=== PATIENT | female | born 1970 | race Caucasian/White ===

== ENCOUNTER 2019-09-06 22:54 | Inpatient (IN) | payer MEDICAID ==
[~2019-09-06] VITALS: Ht 157.5 cm; Wt 57.4 kg
[2019-09-06] MEDS ORDERED: SODIUM CHLORIDE 0.9% 1,000 ML IV ONE (23:30)
[2019-09-06 23:59] LABS: Basophils # (auto) 0.1 uL; Basophils % (auto) 0.8 % (0.0-2.0); Eosinophils # (auto) 0.1 uL; Eosinophils % (auto) 0.6 % (0.0-7.0); Hematocrit 43.4 % (36.0-46.0); Hemoglobin 14.2 g/dL (12.2-16.2); Lymphocytes # (auto) 3.1 uL; Lymphocytes % (auto) 27.4 % (10.0-50.0); Mean Corpuscular Hemoglobin 30.2 pg (28.0-32.0); Mean Corpuscular Hgb Conc. 32.7 g/dL (32.0-36.0); Mean Corpuscular Volume 92.3 fL (80.0-100.0); Monocytes % (auto) 8.5 % (0.0-12.0); Neutrophils # (auto) 7.1 uL; Neutrophils % (auto) 62.7 % (37.0-80.0); Nucleated Red Blood Cells % 0.1 %; Platelet Count (auto) 307 10^3/uL (140-450); Red Cell Distribution Width 13.8 % (11.8-14.3); White Blood Cell 11.4 10^3/uL (4.4-10.8)
[2019-09-07 00:12] LABS: INR 0.98 (0.9-1.15); Partial Thromboplastin Time 30.1 sec (23.64-32.05)
[2019-09-07 00:13] LABS: Acetaminophen < 2.0 ug/mL (10-30); Albumin 3.7 g/dL (3.4-5.0); Calcium 8.6 mg/dL (8.5-10.1); Chloride 106 mmol/L (98-107); Potassium 4.3 mmol/L (3.5-5.1); Salicylate < 1.7 mg/dL (2.8-20.0); Sodium 138 mmol/L (136-145)
[2019-09-07 00:16] LABS: Alanine Aminotransferase 52 U/L (13-56); Anion Gap 7 (5-15); Aspartate Aminotransferase 27 U/L (15-37); BUN/Creatinine Ratio 22.3; Blood Alcohol < 3.0 mg/dL (0-5); Blood Urea Nitrogen 23 mg/dL (7-18); Carbon Dioxide 25 mmol/L (21-32); GFR African American 73 mL/min; GFR Non-African American 61 mL/min; Glucose 101 mg/dL (74-106); Magnesium 2.4 mg/dL (1.6-2.6)
[2019-09-07 00:32] LABS: Alkaline Phosphatase 93 U/L (45-117); Bilirubin, Total 0.3 mg/dL (0.2-1.0)
[2019-09-07] MEDS ORDERED: ADENOSINE 6 MG/2 ML INJ IV ONE (01:15)
[2019-09-07] MEDS ORDERED: MORPHINE SULF INJ 2 MG/ML SYRINGE 1ML IV PRN (06:00)
[2019-09-07] MEDS ORDERED: NITROGLYCERIN 0.4 MG SL TAB SL PRN (06:00)
[2019-09-07] MEDS ORDERED: LORazepam 0.5 MG TAB PO PRN (06:15)
[2019-09-07] MEDS ORDERED: ACETAMINOPHEN 500 MG TAB PO PRN (06:15)
[2019-09-07] MEDS ORDERED: ONDANSETRON HCL 4 MG/2 ML VIAL IV PRN (06:15)
[2019-09-07 06:52] LABS: Basophils # (auto) 0.1 uL; Basophils % (auto) 0.8 % (0.0-2.0); Eosinophils # (auto) 0.1 uL; Eosinophils % (auto) 1.3 % (0.0-7.0); Hematocrit 35.6 % (36.0-46.0); Hemoglobin 12.1 g/dL (12.2-16.2); Lymphocytes # (auto) 2.6 uL; Lymphocytes % (auto) 27.2 % (10.0-50.0); Mean Corpuscular Hemoglobin 31.6 pg (28.0-32.0); Mean Corpuscular Hgb Conc. 33.9 g/dL (32.0-36.0); Monocytes # (auto) 0.6 uL; Monocytes % (auto) 6.3 % (0.0-12.0); Neutrophils # (auto) 6.2 uL; Neutrophils % (auto) 64.4 % (37.0-80.0); Nucleated Red Blood Cells % 0.1 %; Platelet Count (auto) 242 10^3/uL (140-450); Red Blood Cells 3.83 10^6/uL (4.0-5.20); Red Cell Distribution Width 13.8 % (11.8-14.3); White Blood Cell 9.7 10^3/uL (4.4-10.8)
[2019-09-07 07:03] LABS: BUN/Creatinine Ratio 30.5; Calcium 7.3 mg/dL (8.5-10.1); Potassium 4.6 mmol/L (3.5-5.1)
[2019-09-07 07:05] LABS: Cholesterol 144 mg/dL (< 200)
[2019-09-07 07:08] LABS: HDL Cholesterol 54 mg/dL (40-59); LDL Cholesterol 78 mg/dL (< 100); Triglycerides 51 mg/dL (< 150)
[2019-09-07 08:16] LABS: Urine Bacteria NONE SEEN /hpf (None Seen); Urine Blood Negative /uL (Negative); Urine Mucus FEW (None Seen); Urine Specific Gravity 1.023 (1.001-1.035); Urine WBC 259 /hpf (0 - 5)
[2019-09-07 08:40] LABS: Alcohol, Urine < 3.0 mg/dL (0-5); Amphetamine Screen, Urine POSITIVE (NEGATIVE); Barbiturate Scree,Urine NEGATIVE (NEGATIVE); Benzodiazephine Screen, Urine NEGATIVE (NEGATIVE); Cannabinoid Screen, Urine NEGATIVE (NEGATIVE); Cocaine Screen, Urine NEGATIVE (NEGATIVE); Opiate Scree,Urine NEGATIVE (NEGATIVE); Phencyclidine Screen, Urine NEGATIVE (NEGATIVE)
--- NOTE | 2019-09-07 09:13 | NUR ---
Telemetry admit from ER RHEA EISENBERGHER admitted to Telemetry unit after SBAR received. Patient oriented to NICOLE BALLESTEROS RN primary RN, unit, room, bed, and unit policies regarding patient care and visiting hours. Patient now on continuous telemetry monitoring, tele box # 81 and telemetry reading on arrival to unit is NSR. Bed in lowest and locked position with side rails up x2 and Pt encouraged to call if they need something. All questions and concerns addressed, patient verbalized understanding.
[2019-09-07] MEDS ORDERED: CALCIUM GLUC 4.65meq/50ml D5AE 50 ML IV ONE (09:30)
[2019-09-07] MEDS ORDERED: ASPirin-EC 81 mg tab PO SCH (10:00)
[2019-09-07] MEDS ORDERED: PANTOPRAZOLE 40 MG TAB PO SCH (10:00)
[2019-09-07] MEDS ORDERED: ENOXAPARIN SOD 60 MG/0.6 ML SYRINGE SC SCH (10:00)
[2019-09-07 10:02] VITALS: BP 110/75
--- NOTE | 2019-09-07 11:30 | NUR ---
PAGED DR. MULLER REGARDING PT DIET. AWAITING CALL BACK.
--- NOTE | 2019-09-07 12:30 | NUR ---
PER MD ORDERS, PT IS TO BE DISCHARGED ONCE NEUROLOGY HAS CLEARED THE PT TO GO HOME AND SS CONSULT IS COMPLETED.
--- NOTE | 2019-09-07 12:38 | NUR ---
PAGED S/S REGARDING CONSULT.
[2019-09-07] MEDS ORDERED: METO25TA36 PO (12:53)
[2019-09-07] MEDS ORDERED: ASP81EC PO (12:53)
[2019-09-07 13:00] VITALS: BP 92/57
--- NOTE | 2019-09-07 14:40 | NUR ---
SPOKE TO S/SMARK. SS WORKER AWARE OF SS CONSULT.
--- NOTE | 2019-09-07 15:00 | NUR ---
PT BROUGHT BACK FROM RADIOLOGY FOR MRI. THE PT VERBALIZED, "THERE IS NO WAY I AM GOING INTO THE MRI MACHINE". THE PT WAS EDUCATED ON THE PURPOSE AND IMPORTANCE OF THE MRI. THE PT ALSO EDUCATED ON THE RISKS OF NOT RECEIVING THE MRI. THE PT CONTINUES TO REFUSE THE MRI. PT EDUCATED AND ENCOURAGED TO HAVE AN MRI COMPLETED OUT PATIENT, PER MD ORDERS.
--- NOTE | 2019-09-07 15:11 | NUR ---
D/C Planning Per SS consult for Meth abused. Provided information for substance abused to Pt at bedside however Pt refused Resources and stated she will not consume meth due to her heart conditions. Pt verbalize understanding d/c plan.
--- NOTE | 2019-09-07 16:30 | NUR ---
CALLED AND SPOKE TO DR. Fredy MULLER. NOTIFIED OF THE PT BP 92/57. MD AWARE THAT THE PT BP IS DECREASED. DUE TO FURTHER INVESTIGATION ON PT STATUS MD DISCONTINUED THE METOPROLOL THAT WAS PREVIOUSLY PRESCRIBED FOR OUT PT. NEW ORDERS RECEIVED, READ BACK AND VERIFIED.
--- NOTE | 2019-09-07 17:50 | NUR ---
Discharge instructions given as ordered. Encourage to follow up with PMD as instructed. All questions and concerns addressed. Patient verbalized understanding. Medication reconciliation form completed and copy given to patient. No Home medications held in Pharmacy. PT denied needed vaccines. IV removed with catheter intact, pressure dressing applied. Telemetry unit returned to ICU.
--- NOTE | 2019-09-07 18:15 | NUR ---
Patient walked off unit with all personal belongings, accompanied by family member. No distress noted at time of departure.
[2019-09-08] MEDS ORDERED: ENOXAPARIN SOD 40 MG/0.4 ML SYRINGE SC SCH (10:00)
== END 2019-09-07 18:15 | disposition home or self-care (01) | DRG 201 ==
LOC: ER 22:58 → TELE 22:59 → TELE-WESTW 09-07 09:13
PROVIDERS: ADMIT Nurse Practitioner Family; ATTEND Internal Medicine
DX: I47.1 Supraventricular tachycardia (principal); I21.4 Non-ST elevation (NSTEMI) myocardial infarction; F15.10 Other stimulant abuse, uncomplicated; K08.89 Other specified disorders of teeth and supporting structures; F17.200 Nicotine dependence, unspecified, uncomplicated
CPT/HCPCS: 36415; 70450; 71045; 72125; 80048; 80053; 80061; 80307; 80320; 80329; 81001; 81025; 83605; 83735; 83880; 84484; 85025; 85610; 85730; 87040; 93005; 93306; 96360; G0378; J0153; J0610

== ENCOUNTER 2020-06-08 05:42 | Emergency (ER) | payer MEDICAID ==
[~2020-06-08] VITALS: Ht 157.5 cm; Wt 59.0 kg
[~2020-06-08 05:42] MED LIST: ASPI-394 PO
[2020-06-08 09:10] LABS: Basophils # (auto) 0.1 10 ^3/uL (0-0.2); Basophils % (auto) 0.5 % (0.0-2.0); Eosinophils # (auto) 0 10 ^3/uL (0-0.8); Eosinophils % (auto) 0.2 % (0.0-7.0); Hematocrit 41.5 % (36.0-46.0); Hemoglobin 13.8 g/dL (12.2-16.2); Lymphocytes # (auto) 0.9 10 ^3/uL (0.4-5.4); Mean Corpuscular Hemoglobin 30.3 pg (28.0-32.0); Mean Corpuscular Hgb Conc. 33.1 g/dL (32.0-36.0); Mean Corpuscular Volume 91.4 fL (80.0-100.0); Monocytes # (auto) 0.6 10 ^3/uL (0-1.3); Monocytes % (auto) 4.6 % (0.0-12.0); Neutrophils # (auto) 11.2 10 ^3/uL (1.6-8.6); Neutrophils % (auto) 87.7 % (37.0-80.0); Platelet Count (auto) 291 10^3/uL (140-450); Red Blood Cells 4.55 10^6/uL (4.0-5.20); Red Cell Distribution Width 13.8 % (11.8-14.3); White Blood Cell 12.8 10^3/uL (4.4-10.8)
[2020-06-08 09:11] LABS: Urine Bacteria FEW /hpf (None Seen); Urine Blood 3+ /uL (Negative); Urine Hyaline Cast FEW /lpf (0 - 2); Urine Mucus FEW (None Seen); Urine Specific Gravity 1.012 (1.001-1.035); Urine WBC 2 /hpf (0 - 5)
[2020-06-08 09:26] LABS: Albumin 3.8 g/dL (3.4-5.0); Amylase 42 U/L (25-115); Anion Gap 5 (5-15); Blood Urea Nitrogen 11 mg/dL (7-18); Carbon Dioxide 26 mmol/L (21-32); Chloride 110 mmol/L (98-107); Glucose 98 mg/dL (74-106); Lipase 103 U/L (73-393); Magnesium 2.5 mg/dL (1.6-2.6); Sodium 141 mmol/L (136-145)
[2020-06-08 09:31] LABS: Alanine Aminotransferase 20 U/L (13-56); Alkaline Phosphatase 88 U/L (45-117); Aspartate Aminotransferase 19 U/L (15-37); BUN/Creatinine Ratio 17.2; Bilirubin, Total 0.5 mg/dL (0.2-1.0); GFR African American 126 mL/min; GFR Non-African American 104 mL/min
[2020-06-08] MEDS ORDERED: TAMSULOSIN HYDROCHLORIDE 0.4 MG CAP PO ONE (12:45)
[2020-06-08] MEDS ORDERED: SODIUM CHLORIDE 0.9% 1,000 ML IV ONE ×2 (15:18)
[2020-06-08 16:00] VITALS: BP 114/74
--- NOTE | 2020-06-08 16:38 | NUR ---
Assessment Patient is a 49-year-old female who is in the ER. Assessment was completed with patient daughter Deepa . Per Deepa prior to admission patient lived home with her and functioned independently. Per Deepa patient can care for her own ADLs. Per Deepa patient does not need any medical equipment now. Per Deepa patient will return to her prior living arrangements post discharge and family will transport her home. Advised Deepa patient has a social service consult for home health safety evaluation and urology consult in one week. Informed Deepa clinical information will be faxed to [facility] who will assist with her appointment. Informed Deepa she has a right to participate in all discharge planning. Deepa verbalized understanding and agreed to discharge plan. faxed clinical information to [facility] requesting authorization for [facility] requesting to assist with appointment and [facility]. Per Soraya with [facility] patient has been accepted and service to start within 24-48hrs upon d/c. Addendum: 06/08/20 at 1640 by MARK SMALLS Amended: Links added.
== END 2020-06-08 15:21 | disposition home or self-care (01) ==
LOC: ER 05:42
DX: N20.0 Calculus of kidney (principal); D72.829 Elevated white blood cell count, unspecified; F17.210 Nicotine dependence, cigarettes, uncomplicated
CPT/HCPCS: 36415; 71046; 74176; 80053; 81001; 82150; 83690; 83735; 84484; 85025

== ENCOUNTER 2024-06-28 18:56 | Observation (INO) | payer MEDICAID ==
[~2024-06-28] VITALS: Ht 157.5 cm; Wt 55.0 kg
[2024-06-28 19:55] LABS: Basophils # (auto) 0.1 10 ^3/uL (0-0.2); Basophils % (auto) 0.8 % (0.0-2.0); Eosinophils # (auto) 0.1 10 ^3/uL (0-0.8); Eosinophils % (auto) 1.6 % (0.0-7.0); Hematocrit 41.3 % (36.0-46.0); Hemoglobin 13.9 g/dL (12.2-16.2); Lymphocytes # (auto) 2.1 10 ^3/uL (0.4-5.4); Lymphocytes % (auto) 25.4 % (10.0-50.0); Mean Corpuscular Hemoglobin 30.7 pg (28.0-32.0); Mean Corpuscular Hgb Conc. 33.5 g/dL (32.0-36.0); Mean Corpuscular Volume 91.5 fL (80.0-100.0); Monocytes # (auto) 0.7 10 ^3/uL (0-1.3); Monocytes % (auto) 8.2 % (0.0-12.0); Neutrophils # (auto) 5.4 10 ^3/uL (1.6-8.6); Red Blood Cells 4.52 10^6/uL (4.0-5.20); Red Cell Distribution Width 13.6 % (11.8-14.3); White Blood Cell 8.5 10^3/uL (4.4-10.8)
[2024-06-28 20:05] LABS: Chloride 111 mmol/L (98-107); Sodium 144 mmol/L (136-145)
[2024-06-28 20:06] LABS: Anion Gap 7 (5-15); Carbon Dioxide 26 mmol/L (20-30)
[2024-06-28 20:07] LABS: Calcium 9.7 mg/dL (8.7-10.4)
[2024-06-28 20:11] LABS: BUN/Creatinine Ratio 13.3 (10.0-20.0); Blood Urea Nitrogen 11 mg/dL (9-23); Glucose 96 mg/dL (74-106)
[2024-06-28] MEDS: ONDANSETRON HCL 4 MG/2 ML VIAL IV ONE (20:23)
[2024-06-28] MEDS: MORPHINE SULFATE 4 MG/ML SYR/VIAL IV ONE (20:24)
[2024-06-28] MEDS: SODIUM CHLORIDE 0.9% 1,000 ML IVB ONE (20:24)
[2024-06-28 20:30] VITALS: PULSE 89; RESP 20; O2SAT 96
[2024-06-28 23:37] LABS: Urine Bacteria None Seen /hpf (None Seen)
[2024-06-28] MEDS ORDERED: HYDROcodone-ACET 5/325MG TAB PO PRN (23:45)
[2024-06-28] MEDS ORDERED: MORPHINE SULFATE INJ 2 MG/ml SYRG IV PRN (23:45)
[2024-06-28] MEDS ORDERED: ACETAMINOPHEN 325 MG TAB PO PRN (23:45)
[2024-06-28] MEDS ORDERED: ONDANSETRON HCL 4 MG/2 ML VIAL IV PRN (23:45)
[2024-06-28] MEDS ORDERED: DOCUSATE SOD 100 MG CAP PO PRN (23:45)
[2024-06-28] MEDS ORDERED: NITROGLYCERIN 0.4 MG SL TAB SL PRN (23:45)
[2024-06-28] MEDS: SODIUM CHLORIDE 0.9% 1,000 ML IV SCH (23:52)
[2024-06-29] MEDS: cefTRIAXone 1GM/50ML D5W 50 ML IV ONE
[2024-06-29 00:12] LABS: Urine Blood 3+ /uL (Negative); Urine Clarity Clear (Clear); Urine Color Light-Yellow (Yellow); Urine Mucus FEW (None Seen); Urine Protein, UAD Negative (Negative); Urine Specific Gravity 1.012 (1.001-1.035); Urine Urobilinogen Normal (Negative); Urine WBC 3 /hpf (0 - 5)
[2024-06-29 04:43] LABS: Chloride 110 mmol/L (98-107); Potassium 3.8 mmol/L (3.5-5.1); Sodium 143 mmol/L (136-145)
[2024-06-29 04:44] LABS: Calcium 8.7 mg/dL (8.7-10.4)
[2024-06-29 04:48] LABS: Basophils # (auto) 0 10 ^3/uL (0-0.2); Basophils % (auto) 0.6 % (0.0-2.0); Eosinophils # (auto) 0.1 10 ^3/uL (0-0.8); Eosinophils % (auto) 0.9 % (0.0-7.0); Hematocrit 37.5 % (36.0-46.0); Hemoglobin 12.8 g/dL (12.2-16.2); Lymphocytes # (auto) 2.3 10 ^3/uL (0.4-5.4); Lymphocytes % (auto) 27.8 % (10.0-50.0); Mean Corpuscular Hemoglobin 31.3 pg (28.0-32.0); Mean Corpuscular Hgb Conc. 34.1 g/dL (32.0-36.0); Mean Corpuscular Volume 91.7 fL (80.0-100.0); Monocytes # (auto) 0.6 10 ^3/uL (0-1.3); Monocytes % (auto) 6.8 % (0.0-12.0); Neutrophils # (auto) 5.3 10 ^3/uL (1.6-8.6); Neutrophils % (auto) 63.9 % (37.0-80.0); Red Blood Cells 4.09 10^6/uL (4.0-5.20); Red Cell Distribution Width 13.5 % (11.8-14.3); White Blood Cell 8.3 10^3/uL (4.4-10.8)
[2024-06-29 04:49] LABS: BUN/Creatinine Ratio 11.8 (10.0-20.0); Blood Urea Nitrogen 9 mg/dL (9-23); Glucose 104 mg/dL (74-106)
[2024-06-29 04:50] LABS: Anion Gap 4 (5-15); Carbon Dioxide 29 mmol/L (20-30)
[2024-06-29 07:27] VITALS: BP 120/72; TEMP 98.8
[2024-06-29 07:31] VITALS: PULSE 84; RESP 15; O2SAT 96
[2024-06-29] MEDS: ENOXAPARIN SOD 40 MG/0.4 ML SYRINGE SC SCH (10:00)
[2024-06-29] MEDS: TAMSULOSIN HYDROCHLORIDE 0.4 MG CAP PO SCH (10:00)
[2024-06-29] MEDS ORDERED: cefTRIAXone 1GM/50ML D5W 50 ML IV SCH (21:00)
== END 2024-06-29 09:40 | disposition left against medical advice (07) ==
LOC: ER 18:56 → OVERFLOW 23:48
PROVIDERS: ADMIT Nurse Practitioner Family; ATTEND Internal Medicine
DX: N13.2 Hydronephrosis with renal and ureteral calculous obstruction (principal); I11.0 Hypertensive heart disease with heart failure; I50.9 Heart failure, unspecified; D84.9 Immunodeficiency, unspecified; F17.210 Nicotine dependence, cigarettes, uncomplicated; R42 Dizziness and giddiness; R11.0 Nausea; Z79.899 Other long term (current) drug therapy; Z98.890 Other specified postprocedural states
CPT/HCPCS: 36415; 74176; 80048; 81001; 85025; 96361; 96365; 96375; 99285; G0378; J0696; J2270; J2405

== ENCOUNTER 2025-06-20 11:33 | Inpatient (IN) | payer MEDICAID ==
[~2025-06-20] VITALS: Ht 157.5 cm; Wt 69.8 kg
--- NOTE | 2025-06-20 11:50 | ED.PDOC ---
General HPI Comments A 54 year-old female, with a HX of Kidney Stones and a SHX of Methamphetamines, ETOH, and Cigarettes, presents to the ED with a chief complaint of kidney stones with associated dysuria, hematuria, RLQ abdominal pain, and nausea as of hours ago. Patient reports RLQ abdominal pain is constant, radiates to the back, with no associated alleviating factors. Patient has no further complaints at this time and otherwise denies further associated symptoms of V/D, migraine, dizziness, chest pain, urgency, or fever. Chief Complaint: Abdominal Pain Time Seen by MD: 11:45 Primary Care Provider: Unk Reviewed notes: Nurses Notes, Medications, Allergies Allergies: Coded Allergies: Prochlorperazine (Unverified Allergy, Unknown, 07/07/24) Home Meds Active Scripts Aspirin (Aspir-Low Ec) 81 Mg Tb, 81 MG PO DAILY, #30 TAB Prov:MO MULLER MD 09/07/19 Information Source: Patient Mode of Arrival: Ambulatory Severity: Moderate Timing: Hours Duration: Since onset Prehospital treatment: None Onset: Spontaneous Symptoms: Dysuria, Hematuria History of: Kidney stone associated signs and symptoms: Abdominal Pain, Nausea, Dysuria, Hematuria Past Medical History PAST MEDICAL HISTORY: Kidney Stones Surgical History: Denies all surgeries INSULATION CUPOLA OPERATOR History: No Pertinent INSULATION CUPOLA OPERATOR History Family History Family History: Family hx of Cancer, Family hx of HTN Social History Smoker: Cigarettes Alcohol: Occasionally Drugs: Methamphetamine Lives In: Home Constitutional: denies: chills, diaphoresis, fatigue, fever, malaise, sweats, weakness, others EENTM: denies: blurred vision, double vision, ear bleeding, ear discharge, ear drainage, ear pain, ear ringing, eye pain, eye redness, hearing loss, mouth pain, mouth swelling, nasal discharge, nose bleeding, nose congestion, nose pain, photophobia, tearing, throat pain, throat swelling, voice changes, others Respiratory: denies: cough, hemoptysis, orthopnea, SOB at rest, shortness of breath, SOB with excertion, stridor, wheezing, others Cardiovascular: denies: chest pain, dizzy spells, diaphoresis, Dyspnea on exertion, edema, irregular heart beat, left arm pain, lightheadedness, palpitations, PND, syncope, others Gastrointestinal: reports: abdominal pain, nausea; denies: abdomen distended, blood streaked bowels, constipated, diarrhea, dysphagia, difficulty swallowing, hematemesis, melena, poor appetite, poor fluid intake, rectal bleeding, rectal pain, vomiting, others Genitourinary: reports: dysuria, hematuria; denies: abnormal vagina bleeding, burning, dyspareunia, flank pain, frequency, incontinence, pain, , vagina discharge, urgency, others Neurological: denies: dizziness, fainting, headache, left sided numbness, left sided weakness, numbness, paresthesia, pre-existing deficit, right sided numbness, right sided weakness, seizure, speech problems, tingling, tremors, weakness, others Musculoskeletal: denies: back pain, gout, joint pain, joint swelling, muscle pain, muscle stiffness, neck pain, others Integumetry: denies: bruises, change in color, change in hair/nails, dryness, laceration, lesions, lumps, rash, wounds, others Allergic/Immunocompromised: denies: Difficulty Healing, Frequent Infections, Hives, Itching, others Hematologic/Lymphatic: denies: anemia, blood clots, easy bleeding, easy br uising, swollen glands, others Endocrine: denies: excessive hunger, excessive sweating, excessive thirst, excessive urination, flushing, intolerance to cold, intolerance to heat, unexplained weight gain, unexplained weight loss, others Psychiatric: denies: anxiety, bipolar disorder, depression, hopeless, panic disorder, schizophrenia, sleepless, suicidal, others All Other Systems: Reviewed and Negative Physical Exam General Appearance: Moderate Distress HEENT: Normal ENT Inspection, Pharynx Normal, TMs Normal Neck: Full Range of Motion, Non-Tender, Normal, Normal Inspection Respiratory: Chest Non-Tender, Lungs Clear, No Accessory Muscle Use, No Respiratory Distress, Normal Breath Sounds Cardiovascular: No Edema, No JVD, No Murmur, No Gallop, Normal Peripheral Pulses, Regular Rate/Rhythm Breast Exam: Deferred Gastrointestinal: No Organomegaly, Non Tender, No Pulsatile Mass, Normal Bowel Sounds, Soft Genitalia: Deferred Pelvic: Deferred Rectal: Deferred Extremities: No calf tenderness, Normal capillary refill, Normal inspection, Normal range of motion, Non-tender, No pedal edema Musculoskeletal : Apperance: Normal Neurologic: Alert, cleat blanker II-XII nml as Tested, No Motor Deficits, Normal Affect, Normal Mood, No Sensory Deficits Cerebellar Function: Normal Reflexes: Normal Skin: Dry, Normal Color, Warm Lymphatic: No Adenopathy Was a procedure done? Was a procedure done?: No Differential Diagnosis Kidney stone (Female): Ovarian torsion, Pancreatitis, Renal failure, Strain, Urolithiasis Urinary Problem (Female): UTI, Vaginitis, Other (Kidney Stones ) X-Ray, Labs, Meds, VS Vital Signs Date Time Temp Pulse Resp B/P (MAP) Pulse Ox O2 Delivery O2 Flow Rate FiO2 06/20/25 11:40 97.5 99 20 147/93 97 97.5 Lab Test 06/20/25 11:53 06/20/25 11:45 Range/Units White Blood Count 13.5 H 4.4-10.8 10^3/uL Red Blood Count 4.78 4.0-5.20 10^6/uL Hemoglobin 14.6 12.2-16.2 g/dL Hematocrit 43.1 36.0-46.0 % Mean Corpuscular Volume 90.1 80.0-100.0 fL Mean Corpuscular Hemoglobin 30.6 28.0-32.0 pg Mean Corpuscular Hemoglobin Concent 34.0 32.0-36.0 g/dL Red Cell Distribution Width 13.8 11.8-14.3 % Platelet Count 309 140-450 10^3/uL Mean Platelet Volume 7.9 6.9-10.8 fL Neutrophils (%) (Auto) 77.0 37.0-80.0 % Lymphocytes (%) (Auto) 15.0 10.0-50.0 % Monocytes (%) (Auto) 7.1 0.0-12.0 % Eosinophils (%) (Auto) 0.3 0.0-7.0 % Basophils (%) (Auto) 0.6 0.0-2.0 % Neutrophils # (Auto) 10.4 H 1.6-8.6 10 ^3/uL Lymphocytes # (Auto) 2.0 0.4-5.4 10 ^3/uL Monocytes # (Auto) 1.0 0-1.3 10 ^3/uL Eosinophils # (Auto) 0 0-0.8 10 ^3/uL Basophils # (Auto) 0.1 0-0.2 10 ^3/uL Nucleated Red Blood Cells 0.0 % Sodium Level 141 136-145 mmol/L Potassium Level 4.0 3.5-5.1 mmol/L Chloride Level 109 H 98-107 mmol/L Carbon Dioxide Level 24 20-31 mmol/L Anion Gap 8 5-15 Blood Urea Nitrogen 15 9-23 mg/dL Creatinine 1.08 H 0.550-1.02 mg/dL Glomerular Filtration Rate Calc 61 >90 mL/min BUN/Creatinine Ratio 13.9 10.0-20.0 Serum Glucose 108 H 74-106 mg/dL Calcium Level 10.1 8.7-10.4 mg/dL Urine Color Light-orange Yellow Urine Clarity Turbid H Clear Urine pH 5.5 5.0-9.0 Urine Specific [place] 1.025 1.001-1.035 Urine Protein Trace H Negative Urine Ketones Negative Negative Urine Blood 3+ H Negative /uL Urine Nitrite Negative Negative Urine Bilirubin Negative Negative Urine Urobilinogen Normal Negative mg/dL Urine Leukocyte Esterase 2+ Negative /uL Urine RBC 451 0 - 4 /hpf Urine Microscopic WBC 40 H 0-5 /HPF Urine Squamous Epithelial Cells Many <5 /hpf Urine Bacteria None seen None Seen /hpf Urine Mucus Few None Seen Urine Yeast (Budding) Moderate None Seen /hpf Urine Glucose Normal Normal mg/dL IMPRESSION: Moderate right hydronephrosis with a 8 mm stone at the distal ureter at the UVJ with right perinephric fat stranding. Punctate nonobstructive left kidney stones. IV Hep-Lock was established The patient was given normal saline at 1 L bolus o The patient was given ketorolac 30 mg IV push The patient was given morphine 4 mg IV push for the pain The patient was given Zofran four for the nausea The urine test is positive for UTI The patient is being given Rocephin 1 g IV The patient's CBC shows an elevated white blood cell count of 13.5 The rest of the CBC is within normal limits The patient is being discharged Images Reviewed?: Images reviewed and evaluated by me Time of 1ST Reevaluation: 12:08 Reevaluation 1ST: Unchanged Patient Education/Counseling: Diagnosis, Treatment, Prognosis Family Education/Counseling: Diagnosis, Treatment, Prognosis SEPSIS Sepsis Screen Physician Orders Ct Ab Pel Wo Con-No Oral Or Iv (06/20/25 11:45) Heplock Iv (06/20/25 11:45) Vital Signs Date Time Temp Pulse Resp B/P (MAP) Pulse Ox O2 Delivery O2 Flow Rate FiO2 06/20/25 11:40 97.5 99 20 147/93 97 97.5 Laboratory Tests Test 06/20/25 11:53 White Blood Count 13.5 10^3/uL (4.4-10.8) H Departure 1 Departure Time of Disposition: 14:43 Impression: Primary Impression: Hydronephrosis Qualified Codes: N13.2 - Hydronephrosis with renal and ureteral calculous obstruction Additional Impressions: Urinary tract infection Qualified Codes: N30.01 - Acute cystitis with hematuria Ureterolithiasis Disposition: ADMITTED INPATIENT Admit to: Med Surg Condition: Fair Discharged With: Self Critical Care Note Critical Care Time?: No Stability Stability form required: Yes Unstable for transfer: ED Physician Assesment (Clinical assesment) Heart Score Heart Score: Heart Score Response (Comments) Value History N/A 0 EKG N/A 0 Age N/A 0 Risk Factors N/A 0 Troponin N/A 0 Total 0 I personally scribed for AMY HART MD ([email or web address]) on 06/20/25 at 11:50. Electronically submitted by Kaylen Apple ([employer]). I personally scribed for AMY HART MD ([email or web address]) on 06/20/25 at 13:40. Electronically submitted by Kaylen Apple ([employer]). AMY HART MD Jun 20, 2025 11:50
[2025-06-20 12:15] LABS: Potassium 4.0 mmol/L (3.5-5.1); Sodium 141 mmol/L (136-145)
[2025-06-20 12:16] LABS: Anion Gap 8 (5-15); Carbon Dioxide 24 mmol/L (20-31)
[2025-06-20 12:17] LABS: Calcium 10.1 mg/dL (8.7-10.4)
[2025-06-20 12:18] LABS: Chloride 109 mmol/L (98-107); Hematocrit 43.1 % (36.0-46.0); Hemoglobin 14.6 g/dL (12.2-16.2); Mean Corpuscular Hemoglobin 30.6 pg (28.0-32.0); Mean Corpuscular Volume 90.1 fL (80.0-100.0); Nucleated Red Blood Cells % 0.0 %
[2025-06-20 12:21] LABS: BUN/Creatinine Ratio 13.9 (10.0-20.0); Blood Urea Nitrogen 15 mg/dL (9-23); Glucose 108 mg/dL (74-106)
[2025-06-20 12:32] LABS: Urine Budding Yeast MODERATE /hpf (None Seen); Urine Protein, UAD TRACE (Negative)
--- NOTE | 2025-06-20 12:38 | DVH ---
CT CT AB PEL WO CON-NO ORAL OR IV INDICATION: pain EXAM DATE: 06/20/2025 11:49 AM COMPARISON: CT CT AB PEL WO CON-NO ORAL OR IV on DOS: 06/28/24, CT ABD PELVIS WO CONTRAST on DOS: RADIATION DOSE: CTDIvol: 6 mGy, DLP: 306 mGy*cm PROCEDURE: Helical CT images were obtained of the abdomen and pelvis without IV contrast Sagittal and coronal reconstructions are provided. ORAL CONTRAST: None. ADDITIONAL IMAGES / REFORMATS: None All C T scans at this medical facility are performed using dose modulation techniques as appropriate to a p erformed exam including the following: Automated exposure control was utilized; adjustment of the MA and/or KV according to patient size; and use of iterative reconstruction technique. FINDINGS: LUNG BASE: Normal. LIVER: Normal. GALLBLADDER AND BILIARY TREE: No calcified gallstones. Normal caliber wall. No intra- or extrahepatic biliary ductal dilation. PANCREAS: Normal. SPLEEN: Normal. BOWEL: Normal. Normal appendix. ADRENALS: Normal. KIDNEYS AND URETER: Moderate right hydronephrosis with a 8 mm stone at the distal ureter at the UVJ w ith right perinephric fat stranding. Punctate nonobstructive left kidney stones. BLADDER: Normal. REPRODUCTIVE ORGANS: Normal. LYMPH NODES:No lymphadenopathy. PERITONEUM: No ascites or free air. No other fluid collection. VESSELS: Scattered atherosclerotic calcifications are noted. RETROPERITONEUM: Normal. ABDOMINAL WALL: Normal. BONES: Scattered osseous degenerative changes are noted. IMPRESSION: Moderate right hydronephrosis with a 8 mm stone at the distal ureter at the UVJ with right perinephri c fat stranding. Punctate nonobstructive left kidney stones.
[2025-06-20] MEDS: ONDANSETRON HCL 4 MG/2 ML VIAL IV ONE (15:11)
[2025-06-20] MEDS: KETOROLAC TROMETH 30 MG/ML 1ML VIAL IV ONE (15:12)
[2025-06-20] MEDS: SODIUM CHLORIDE 0.9% 1,000 ML IVB ONE (15:12)
[2025-06-20] MEDS: cefTRIAXone 1GM/50ML D5W 50 ML IV ONE (15:12)
[2025-06-20] MEDS: MORPHINE SULFATE 4 MG/ML SYR/VIAL IV ONE (15:22)
[2025-06-20] MEDS ORDERED: ACETAMINOPHEN 325 MG TAB PO PRN (15:30)
[2025-06-20] MEDS ORDERED: ONDANSETRON HCL 4 MG/2 ML VIAL IV PRN (15:30)
[2025-06-20] MEDS ORDERED: DOCUSATE SOD 100 MG CAP PO PRN (15:30)
[2025-06-20] MEDS ORDERED: KETOROLAC TROMETH 30 MG/ML 1ML VIAL IV PRN (15:30)
--- NOTE | 2025-06-20 15:34 | DVHHP2 ---
History of Present Illness Reason for Visit: Abdominal pain History of Present Illness Hemalatha West is a 54-year-old female with past medical history of kidney stones who came to the hospital for abdominal pain. Patient states her pain began today and she has associated nausea. Renal/: Other (Kidney stones) Past Surgical History: None Smoke: <1 pack per day ALCOHOL: rare Drugs: Other (methamphetamine) Lives: with Family Domestic Violence: Neg Review of Systems Constitutional: No: Fever, Chills, Sweats, Weakness, Malaise, Other Eyes: No: Pain, Vision change, Conjunctivae inflammation, Eyelid inflammation, Other, Redness ENT: No: Ear pain, Ear discharge, Nose pain, Nose discharge, Nose congestion, Mouth pain, Mouth swelling, Throat pain, Throat swelling, Other Respiratory: No: Cough, Dry, Shortness of breath, SOB with excertion, Wheezing, Hemoptysis, Pleuritic Pain, Sputum, Wheezing, Other Cardiovascular: No: Chest Pain, Palpitations, Orthopnea, Paroxysmal Noc. Dyspnea, Edema, Lt Headedness, Other Gastrointestinal: Abdominal Pain; No: Nausea, Vomiting, Diarrhea, Constipation, Melena, Hematochezia, Other Genitourinary: No Dysuria, No Frequency, No Incontinence, No Hematuria, No Retention, No Other Musculoskeletal: No: other, neck pain, shoulder pain, arm pain, back pain, hand pain, leg pain, foot pain Skin: No: Rash, Lesions, Jaundice, Bruising, Other Neurological: No: Weakness, Numbness, Incoordination, Change in speech, Confusion, Seizures, Other Allergies: Coded Allergies: Prochlorperazine (Unverified Allergy, Unknown, 07/07/24) Medications Current Medications Medications Dose Ordered Sig/Shamar Route Start Time Stop Time Status Last Admin Dose Admin Acetaminophen/ Hydrocodone Bitart 1 tab Q4HP PRN PO 06/20/25 15:30 UNV Ondansetron HCl 4 mg Q4HP PRN IV 06/20/25 15:30 UNV Docusate Sodium 100 mg BIDPRN PRN PO 06/20/25 15:30 UNV Acetaminophen 650 mg Q6HP PRN PO 06/20/25 15:30 UNV Exam Vital Signs Vital Signs Date Time Temp Pulse Resp B/P (MAP) Pulse Ox O2 Delivery O2 Flow Rate FiO2 06/20/25 11:40 97.5 99 20 147/93 97 97.5 General Appearance: Alert, Oriented X3, Cooperative HEENT: Atraumatic, PERRLA Respiratory: Clear to auscultation, Normal air movement Cardiovascular: Regular rate, Normal S1, Normal S2, No murmurs Abdominal: Normal bowel sounds, Soft, No hepatospenomegaly, Other (right abdominal pain that radiates to the back and lower pelvic region,) Extremities: No clubbing, No cyanosis, No edema, Normal pulses, No tenderness/swelling Skin: No rashes, No breakdown, No significant lesion Neuro: Normal gait, Normal speech, Strength at 5/5 X4 ext, Normal tone Psych/Mental Status: Mental status NL, Mood NL Labs/Xrays Labs Test 06/20/25 11:53 06/20/25 11:45 Range/Units White Blood Count 13.5 H 4.4-10.8 10^3/uL Red Blood Count 4.78 4.0-5.20 10^6/uL Hemoglobin 14.6 12.2-16.2 g/dL Hematocrit 43.1 36.0-46.0 % Mean Corpuscular Volume 90.1 80.0-100.0 fL Mean Corpuscular Hemoglobin 30.6 28.0-32.0 pg Mean Corpuscular Hemoglobin Concent 34.0 32.0-36.0 g/dL Red Cell Distribution Width 13.8 11.8-14.3 % Platelet Count 309 140-450 10^3/uL Mean Platelet Volume 7.9 6.9-10.8 fL Neutrophils (%) (Auto) 77.0 37.0-80.0 % Lymphocytes (%) (Auto) 15.0 10.0-50.0 % Monocytes (%) (Auto) 7.1 0.0-12.0 % Eosinophils (%) (Auto) 0.3 0.0-7.0 % Basophils (%) (Auto) 0.6 0.0-2.0 % Neutrophils # (Auto) 10.4 H 1.6-8.6 10 ^3/uL Lymphocytes # (Auto) 2.0 0.4-5.4 10 ^3/uL Monocytes # (Auto) 1.0 0-1.3 10 ^3/uL Eosinophils # (Auto) 0 0-0.8 10 ^3/uL Basophils # (Auto) 0.1 0-0.2 10 ^3/uL Nucleated Red Blood Cells 0.0 % Sodium Level 141 136-145 mmol/L Potassium Level 4.0 3.5-5.1 mmol/L Chloride Level 109 H 98-107 mmol/L Carbon Dioxide Level 24 20-31 mmol/L Anion Gap 8 5-15 Blood Urea Nitrogen 15 9-23 mg/dL Creatinine 1.08 H 0.550-1.02 mg/dL Glomerular Filtration Rate Calc 61 >90 mL/min BUN/Creatinine Ratio 13.9 10.0-20.0 Serum Glucose 108 H 74-106 mg/dL Calcium Level 10.1 8.7-10.4 mg/dL Urine Color Light-orange Yellow Urine Clarity Turbid H Clear Urine pH 5.5 5.0-9.0 Urine Specific [place] 1.025 1.001-1.035 Urine Protein Trace H Negative Urine Ketones Negative Negative Urine Blood 3+ H Negative /uL Urine Nitrite Negative Negative Urine Bilirubin Negative Negative Urine Urobilinogen Normal Negative mg/dL Urine Leukocyte Esterase 2+ Negative /uL Urine RBC 451 0 - 4 /hpf Urine Microscopic WBC 40 H 0-5 /HPF Urine Squamous Epithelial Cells Many <5 /hpf Urine Bacteria None seen None Seen /hpf Urine Mucus Few None Seen Urine Yeast (Budding) Moderate None Seen /hpf Urine Glucose Normal Normal mg/dL CT CT AB PEL WO CON-NO ORAL OR IV FINDINGS: LUNG BASE: Normal. LIVER: Normal. GALLBLADDER AND BILIARY TREE: No calcified gallstones. Normal caliber wall. No intra- or extrahepatic biliary ductal dilation. PANCREAS: Normal. SPLEEN: Normal. BOWEL: Normal. Normal appendix. ADRENALS: Normal. KIDNEYS AND URETER: Moderate right hydronephrosis with a 8 mm stone at the distal ureter at the UVJ with right perinephric fat stranding. Punctate nonobstructive left kidney stones. BLADDER: Normal. REPRODUCTIVE ORGANS: Normal. LYMPH NODES:No lymphadenopathy. PERITONEUM: No ascites or free air. No other fluid collection. VESSELS: Scattered atherosclerotic calcifications are noted. RETROPERITONEUM: Normal. ABDOMINAL WALL: Normal. BONES: Scattered osseous degenerative changes are noted. IMPRESSION: Moderate right hydronephrosis with a 8 mm stone at the distal ureter at the UVJ with right perinephric fat stranding. Punctate nonobstructive left kidney stones. SEPSIS Sepsis Screen Date sepsis recognized/suspect: Jun 20, 2025 Time Sepsis recognized/suspect: 1135 Recent Procedure: No On Antibiotic Therapy: No Respiratory Rate >20: No Heart Rate >90: No Temp<36 C (96.8 F) or >38.3 C: No SBP <90 or MAP <65 mmHG: No New Acute Mental Status Change: No Is the patient on CPAP, BIPAP,: No Physician Orders Ct Ab Pel Wo Con-No Oral Or Iv (06/20/25 11:45) Heplock Iv (06/20/25 11:45) Admit (06/20/25 15:17) Code Status (06/20/25 15:17) Hydrocodone-Acet 5/325mg Tab ([place] 5/32 (06/20/25 15:30) Ondansetron Hcl (Zofran) (06/20/25 15:30) Docusate Sodium Capsule (Colace Capsule) (06/20/25 15:30) Complete Blood Count (06/21/25 04:00) Comprehensive Metabolic Panel (06/21/25 04:00) Condition: Serious (06/20/25 15:17) Acetaminophen Tablet (Tylenol Tablet) (06/20/25 15:30) * Radiologist Consult (06/20/25 15:19) PTPTT (06/20/25 15:19) * Urology Consult (06/20/25 15:19) Vital Signs Date Time Temp Pulse Resp B/P (MAP) Pulse Ox O2 Delivery O2 Flow Rate FiO2 06/20/25 11:40 97.5 99 20 147/93 97 97.5 Laboratory Tests Test 06/20/25 11:53 White Blood Count 13.5 10^3/uL (4.4-10.8) H Medications Medications Dose Ordered Sig/Shamar Route Start Time Stop Time Status Last Admin Dose Admin Ceftriaxone Sodium 50 ml @ 100 mls/hr ONCE ONCE IV 06/20/25 14:45 06/20/25 15:14 DC 06/20/25 15:12 100 MLS/HR Ketorolac Tromethamine 30 mg ONCE ONCE IV 06/20/25 11:45 06/20/25 11:47 DC 06/20/25 15:12 30 MG Ondansetron HCl 4 mg ONCE ONCE IV 06/20/25 11:45 06/20/25 11:47 DC 06/20/25 15:11 4 MG Sodium Chloride 1,000 ml @ 1,000 mls/hr Q1H ONCE IVB 06/20/25 11:45 06/20/25 12:44 DC 06/20/25 15:12 1,000 MLS/HR Assessment/Plan Assessment/Plan Assessment: Hydronephrosis, Obstructing renal calculi, Leukocytosis, Illicit drug use, Tobacco dependance, Plan: Admit to Med-Surg, IR consult, for possible nephrostomy tube, Urology consult, IV hydration, IV antibiotics, Flomax, Pain management, Plan discussed with: Patient My Orders Orders - HANK CLOUD Procedure Category Date Status Time Admit ADMIT 06/20/25 Transmitted 15:17 Code Status CODE 06/20/25 Transmitted 15:17 Hydrocodone-Acet PHA 06/20/25 Logged 5/325mg Tab ([place] 15:30 Ondansetron Hcl PHA 06/20/25 Logged (Zofran) 15:30 Docusate Sodium PHA 06/20/25 Logged Capsule (Colace 15:30 Complete Blood Count LAB 06/21/25 Verified 04:00 Comprehensive LAB 06/21/25 Verified Metabolic Panel 04:00 Condition: Serious LIZETTE 06/20/25 In Process 15:17 Acetaminophen Tablet PHA 06/20/25 Logged (Tylenol Tablet) 15:30 * Radiologist Consult CONS 06/20/25 Verified 15:19 PTPTT LAB 06/20/25 Verified 15:19 * Urology Consult CONS 06/20/25 Verified 15:19 Date of Service: Jun 20, 2025 Billing Provider: HANK CLOUD Common Visit Codes: 93967-[id number] INP/OBS CARE (MOD) HANK CLOUD Jun 20, 2025 15:34
[2025-06-20 15:57] LABS: INR 1.02 (0.9-1.15); Partial Thromboplastin Time 21.4 SEC (24.5-34.5); Prothrombin Time 10.8 sec (9.3-11.8)
[2025-06-20] MEDS: TAMSULOSIN HYDROCHLORIDE 0.4 MG CAP PO ONE (16:08)
--- NOTE | 2025-06-20 16:08 | DVH ---
INDICATION: EVALUATE FOR POSSIBLE NEPHROSTOMY TUBE PLACEMENT. Right UVJ ureteral stone. Right hydron ephrosis. TECHNIQUE: Multiple real-time sonographic images of the kidneys and bladder were obtained. COMPARISON: No prior ultrasound is available for comparison. FINDINGS: The right kidney measures 11.3 cm in length, which is normal in size. There is normal echog enicity of the right kidney. There is moderate hydronephrosis of the right kidney. There is trace rig ht perinephric fluid. The left kidney measures 9.8 cm in length, which is normal in size. There is normal echogenicity of t he left kidney. No hydronephrosis. A 5 mm calculus is noted at the superior pole. There is a 5 mm ca lculus at the interpolar region. The urinary bladder is decompressed and is not well evaluated. IMPRESSION: Moderate right hydronephrosis. Left nephrolithiasis. No left hydronephrosis.
[2025-06-20] MEDS: SODIUM CHLORIDE 0.9% 1,000 ML IV ONE (17:29)
[2025-06-20 23:31] VITALS: BP 97/61; PULSE 80; RESP 16; TEMP 98.7; O2SAT 100
[2025-06-21] VITALS (13 sets, daily range): BP systolic 91–129; BP diastolic 46–85; PULSE 77–93; RESP 15–18; TEMP 98.3–98.4; O2SAT 95–100
[2025-06-21] MEDS: cefTRIAXone 1GM/50ML D5W 50 ML IV SCH (08:09)
[2025-06-21 09:18] LABS: Hematocrit 39.5 % (36.0-46.0); Hemoglobin 13.2 g/dL (12.2-16.2); Mean Corpuscular Hemoglobin 30.3 pg (28.0-32.0); Mean Corpuscular Volume 90.3 fL (80.0-100.0); Nucleated Red Blood Cells % 0.0 %
[2025-06-21 09:29] LABS: Alanine Aminotransferase 20 U/L (7-40); Albumin 4.1 g/dL (3.2-4.8); Alkaline Phosphatase 85 U/L (46-116); Anion Gap 9 (5-15); BUN/Creatinine Ratio 18.1 (10.0-20.0); Blood Urea Nitrogen 17 mg/dL (9-23); Calcium 9.3 mg/dL (8.7-10.4); Carbon Dioxide 24 mmol/L (20-31); Glucose 93 mg/dL (74-106); Potassium 3.8 mmol/L (3.5-5.1); Sodium 143 mmol/L (136-145); Total Protein 6.0 g/dL (5.7-8.2)
[2025-06-21 09:30] LABS: Bilirubin, Total 0.6 mg/dL (0.2-1.0)
[2025-06-21 09:35] LABS: Chloride 110 mmol/L (98-107)
[2025-06-21 11:05] LABS: Hepatitis B Surface Antigen Negative (Negative); Hepatitis C Antibody Negative (Negative)
--- NOTE | 2025-06-21 11:05 | DVH ---
US KIDNEY HISTORY: hydronephrosis COMPARISON: US KIDNEY on DOS: 06/20/25, CT CT AB PEL WO CON-NO ORAL OR IV on DOS: 06/20/25, CT CT AB PE L WO CON-NO ORAL OR IV on DOS: 06/28/24 TECHNIQUE: Transverse and longitudinal grayscale and color doppler images were obtained of the kidney s and bladder. FINDINGS: Right kidney: Size: 11.5 cm Cortical thickness: Normal Echogenicity: Normal Stones: Yes Masses: None Hydronephrosis: Yes Ureters: Hydroureter Other: None Other: None. IMPRESSION: Similar moderate right hydronephrosis. Similar right UVJ stone measures 11 mm.
--- NOTE | 2025-06-21 11:41 | DVHPN2 ---
Reviewed: Care Plan, H&P, Labs, Medications, Previous Orders, Radiology Changes from previous H/P or p: No Changes Eyes: No Pain, No Vision change, No Conjunctivae inflammation, No Eyelid inflammation, No Other, No Redness ENT: No Ear pain, No Ear discharge, No Nose pain, No Nose discharge, No Nose congestion, No Mouth pain, No Mouth swelling, No Throat pain, No Throat swelling, No Other Cardiovascular: No Chest Pain, No Palpitations, No Orthopnea, No Paroxysmal Noc. Dyspnea, No Edema, No Lt Headedness, No Other Respiratory: No Cough, No Dry, No Shortness of breath, No SOB with excertion, No Wheezing, No Hemoptysis, No Pleuritic Pain, No Sputum, No Other Gastrointestinal: No Nausea, No Vomiting; Abdominal Pain; No Diarrhea, No Constipation, No Melena, No Hematochezia, No Other Genitourinary: No Dysuria, No Frequency, No Incontinence, No Hematuria, No Retention, No Other Musculoskeletal: No other, No neck pain, No shoulder pain, No arm pain, No back pain, No hand pain, No leg pain, No foot pain Skin: No Rash, No Lesions, No Jaundice, No Bruising, No Other Objective Vitals Vital Signs Date Time Temp Pulse Resp B/P (MAP) Pulse Ox O2 Delivery O2 Flow Rate FiO2 06/21/25 08:47 98.4 86 18 113/56 (75) 98 98.4 06/20/25 23:31 Room Air* 0 21 Intake/Output Intake and Output 06/21/25 07:00 Intake Total 1290 ml Balance 1290 ml Intake Oral 240 ml IV Total 1050 ml # Voids 1 General Appearance: Alert, Oriented X3, Cooperative, No acute distress HEENT: Atraumatic, PERRLA, EOMI, Mucous membr. moist/pink Neck: Supple Lungs: Clear to auscultation, Normal air movement Cardiovascular: Regular rate, Normal S1, Normal S2, No murmurs, Gallops, Rubs Abdomen: Normal bowel sounds, Soft, No tenderness Neuro: Cranial nerves 3-12 NL Psych/Mental Status: Mental status NL Medications Current Medications Medications Dose Ordered Sig/Shamar Route Start Time Stop Time Status Last Admin Dose Admin Acetaminophen/ Hydrocodone Bitart 1 tab Q4HP PRN PO 06/20/25 15:30 Ondansetron HCl 4 mg Q4HP PRN IV 06/20/25 15:30 Docusate Sodium 100 mg BIDPRN PRN PO 06/20/25 15:30 Acetaminophen 650 mg Q6HP PRN PO 06/20/25 15:30 Tamsulosin HCl 0.4 mg QPM PO 06/21/25 18:00 Ketorolac Tromethamine 30 mg Q6HPRN PRN IV 06/20/25 15:30 06/25/25 15:29 Ceftriaxone Sodium 50 ml @ 100 mls/hr DAILY@09 IV 06/21/25 09:00 06/21/25 08:09 100 MLS/HR Laboratory Results Laboratory Tests 06/21/25 08:45 Chemistry Test 06/20/25 11:53 06/21/25 08:45 Calcium Level 10.1 mg/dL (8.7-10.4) 9.3 mg/dL (8.7-10.4) Albumin 4.1 g/dL (3.2-4.8) Total Protein 6.0 g/dL (5.7-8.2) Coagulation Test 06/20/25 15:28 Prothrombin Time 10.8 sec (9.3-11.8) Prothrombin Time INR 1.02 (0.9-1.15) Activated Partial Thromboplast Time 21.4 SEC (24.5-34.5) L LFT Test 06/21/25 08:45 Alanine Aminotransferase (ALT) 20 U/L (7-40) Alkaline Phosphatase 85 U/L (46-116) Aspartate Amino Transferase (AST) 23 U/L (13-40) Total Bilirubin 0.6 mg/dL (0.2-1.0) Urinalysis Test 06/20/25 11:45 Urine Color Light-orange (Yellow) Urine Clarity Turbid (Clear) H Urine pH 5.5 (5.0-9.0) Urine Specific [place] 1.025 (1.001-1.035) Urine Protein Trace (Negative) H Urine Ketones Negative (Negative) Urine Blood 3+ /uL (Negative) H Urine Nitrite Negative (Negative) Urine Bilirubin Negative (Negative) Urine Urobilinogen Normal mg/dL (Negative) Urine Leukocyte Esterase 2+ /uL (Negative) Urine RBC 451 /hpf (0 - 4) Urine Microscopic WBC 40 /HPF (0-5) H Urine Squamous Epithelial Cells Many /hpf (<5) Urine Bacteria None seen /hpf (None Seen) Urine Mucus Few (None Seen) Urine Yeast (Budding) Moderate /hpf (None Seen) Urine Glucose Normal mg/dL (Normal) Labs and/or images reviewed: Labs reviewed by me Assessment/Plan Assessment/Plan Hydronephrosis, Obstructive uropathy Leukocytosis, Illicit drug use, Tobacco dependence Continuing current management. Continuing with IV antibiotic., Right nephrostomy tube had been placed by interventional radiologist. Continuing pain medication. Continuing with Flomax. Waiting for urologist to see the patient. Discharge planning. This medical document was created using an electronic medical record system with [employer] computerized dictation system. Although this document has been carefully reviewed, there may still be some phonetic and typographical errors. These areas are purely typographical due to imperfections of the software programs, and do not reflect any compromise in the patient's medical care. Plan discussed with: Patient Date of Service: Jun 21, 2025 Billing Provider: DEANGELO JIMÉNEZ MD Common Visit Codes: [id number] INP/OBS CARE(HIGH) DEANGELO JIMÉNEZ MD Jun 21, 2025 11:41
[2025-06-21] MEDS: IODIXANOL 320MG/ML 100ML BTL IV ONE (11:58)
[2025-06-21] MEDS: fentaNYL CITRATE 100 MCG/2 ML VL ONE (11:58)
[2025-06-21] MEDS: LIDOCAINE 2%HCL (LOCAL ANESTH.) INJ 20ML MDV ONE (11:58)
[2025-06-21] MEDS: MIDAZOLAM HCL 2MG/2ML 2ml VIAL (1mg/ml) ONE (11:58)
--- NOTE | 2025-06-21 12:57 | DVH ---
XY PERCUTANEOUS NEPHROSTOMY, HISTORY: Right nephrostomy tube placement for obstructive 8 mm stone. PROCEDURE: Informed consent was obtained. The patient was placed on the fluoroscopic table in a prone position and IV sedation administered. The right flank was prepped with chlorhexidine which was allo wed to dry and draped in the usual sterile fashion. Time out was performed. and the soft tissues infi ltrated with 1% lidocaine local anesthetic. Utilizing ultrasound guidance, a 21 gauge Accu Stick need le was advanced from a posterolateral approach into an lower pole calyx, and a small amount of contra st was injected under fluoroscopy to confirm positioning. Over a mandril wire, exchange was made to a non-vascular access set, through which was advanced an 0.035 wire. Following serial dilation, an 8.5 Hungarian multipurpose nephrostomy catheter was placed with tip pigtailed within the renal pelvis. Posi tion was confirmed with antegrade nephrostogram. The catheter was secured in place and connected to g ravity drainage. A sterile dressing was applied. No immediate complication was identified. DAP 200 FLUOROSCOPY TIME: 1.5 minutes. CONTRAST USED: 15 mL . SEDATION: Dr. Vangie Loza was personally responsible for the administration of moderate sedation during the procedure performed, including the use of an independent trained observer who had no other duties during the procedure. The drugs utilized were IV fentanyl and versed (see nursing log for details). The total time of supervision by the attending physician was approximately 30 minutes. FINDINGS: Dilated right renal collecting system involving the calyces/renal pelvis/ureter to the leve l of the distal ureter. New 8.5 mozambican nephrostomy tube via a posterior lower pole calyceal access , with loop coiled within the renal pelvis. IMPRESSION: Right hydronephrosis due to obstructive 8 mm stone, status post placement of 8.5 mozambican right percut aneous nephrostomy catheter. PLAN: Routine catheter care.
--- NOTE | 2025-06-21 12:57 | DVH ---
XY PERCUTANEOUS NEPHROSTOMY, HISTORY: Right nephrostomy tube placement for obstructive 8 mm stone. PROCEDURE: Informed consent was obtained. The patient was placed on the fluoroscopic table in a prone position and IV sedation administered. The right flank was prepped with chlorhexidine which was allo wed to dry and draped in the usual sterile fashion. Time out was performed. and the soft tissues infi ltrated with 1% lidocaine local anesthetic. Utilizing ultrasound guidance, a 21 gauge Accu Stick need le was advanced from a posterolateral approach into an lower pole calyx, and a small amount of contra st was injected under fluoroscopy to confirm positioning. Over a mandril wire, exchange was made to a non-vascular access set, through which was advanced an 0.035 wire. Following serial dilation, an 8.5 Frisian multipurpose nephrostomy catheter was placed with tip pigtailed within the renal pelvis. Posi tion was confirmed with antegrade nephrostogram. The catheter was secured in place and connected to g ravity drainage. A sterile dressing was applied. No immediate complication was identified. DAP 200 FLUOROSCOPY TIME: 1.5 minutes. CONTRAST USED: 15 mL . SEDATION: Dr. Vangie Loza was personally responsible for the administration of moderate sedation during the procedure performed, including the use of an independent trained observer who had no other duties during the procedure. The drugs utilized were IV fentanyl and versed (see nursing log for details). The total time of supervision by the attending physician was approximately 30 minutes. FINDINGS: Dilated right renal collecting system involving the calyces/renal pelvis/ureter to the leve l of the distal ureter. New 8.5 namibian nephrostomy tube via a posterior lower pole calyceal access , with loop coiled within the renal pelvis. IMPRESSION: Right hydronephrosis due to obstructive 8 mm stone, status post placement of 8.5 namibian right percut aneous nephrostomy catheter. PLAN: Routine catheter care.
[2025-06-21] MEDS: TAMSULOSIN HYDROCHLORIDE 0.4 MG CAP PO SCH (17:53)
[2025-06-21] MEDS: HYDROcodone-ACET 5/325MG TAB PO PRN (17:56)
--- NOTE | 2025-06-21 18:27 | DVHINCON2 ---
Date of service: Jun 21, [address] Deangelo Jiménez History of Present Illness History Source: Patient, Family, MD Notes Exam Limitations: No limitations HPI 54-year-old female with history of nephrolithiasis, previously passed spontaneously, presents with RLQ abdominal pain that began yesterday. She describes the pain as sharp and constant , without radiation. Associated s ymptoms include nausea, but no vomiting, fever, chills, dysuria, or hematuria reported at this time. Pain is similar to prior stone episodes but more localized to the lower abdomen. No known history of appendectomy. Home Meds Active Scripts Hydrocodone-Acetaminophen (Hydrocodone Bitartrate/AC 5-325 mg) 1 Tab Tab, 1 TAB PO Q4HP PRN, #20 TAB Prov:DEANGELO JIMÉNEZ MD 06/22/25 Tamsulosin Hcl (Flomax) 0.4 Mg Cap, 0.4 MG PO QPM, #30 CAP Prov:DEANGELO JIMÉNEZ MD 06/22/25 Aspirin (Aspir-Low Ec) 81 Mg Tb, 81 MG PO DAILY, #30 TAB Prov:MO MULLER MD 09/07/19 Chief Complaint of Abdominal/F: Abdominal pain, Nausea Onset/Duration of Abd/Flank Pa: Constant, Gradual Quality of Abd/Flank Pain: Sharpness, Stabbing Location of Abdominal Onset: RLQ Abdominal Pain Radiation: No radiation Activities of Onset of Abd/Fla: Sleep Modifying Factors for Abd Pain: Movement Associated Symptoms of Abd/Fla: Nausea Timing of Abdominal Pain: Better Abd/Flank Pain Exacerbated by: Movements Abd/Flank Pain Relieved by: Medication Past Medical History Past Surgical History: No pertinent Hx Family History: No pertinent Hx Patient Family History: Patient reports no known family medical history. Lives with: With family Domestic Violence: Neg Review of Systems Constitutional: No symptom reported Ears, Nose, & Throat: No symptom reported Eyes: No symptom reported Pulmonary/Respiratory: No symptom reported Cardiovascular: No symptom reported Gastrointestinal: Nausea Genitourinary: Frequency, Urgency Musculoskeletal: No symptom reported Skin: No symptom reported Psychiatric: No symptom reported Endocrine: No symptom reported Hemotologic/Lymphatic: No symptom reported H&P Exam Vital Signs Vital Signs Date Time Temp Pulse Resp B/P (MAP) Pulse Ox O2 Delivery O2 Flow Rate FiO2 06/21/25 15:58 85 15 97 Room Air* 0 21 06/21/25 15:15 127/74 (91) 06/21/25 13:30 98.3 98.3 General Appeara: Well developed, Well nourished, Normal Appearance Head Exam: Normal inspection Neck Exam: Normal inspection Pulmonary/Respiratory: Normal breath sounds Cardiovascular/Chest: Normal inspection, Regular rate, Normal Rhythm Abdominal Exam: Soft Abdominal Pain Onset Location: RLQ, Flank Neuro/Mental St: Alert, Oriented Appearance: Appropriate appearance Skin Exam: Normal inspection Lymphatic: Normal inspection Labs/Xrays Labs Test 06/21/25 08:45 06/20/25 15:28 06/20/25 11:45 Range/Units White Blood Count 6.5 # 4.4-10.8 10^3/uL Red Blood Count 4.38 4.0-5.20 10^6/uL Hemoglobin 13.2 12.2-16.2 g/dL Hematocrit 39.5 36.0-46.0 % Mean Corpuscular Volume 90.3 80.0-100.0 fL Mean Corpuscular Hemoglobin 30.3 28.0-32.0 pg Mean Corpuscular Hemoglobin Concent 33.5 32.0-36.0 g/dL Red Cell Distribution Width 13.4 11.8-14.3 % Platelet Count 253 140-450 10^3/uL Mean Platelet Volume 8.1 6.9-10.8 fL Neutrophils (%) (Auto) 54.6 37.0-80.0 % Lymphocytes (%) (Auto) 35.3 10.0-50.0 % Monocytes (%) (Auto) 7.1 0.0-12.0 % Eosinophils (%) (Auto) 2.2 0.0-7.0 % Basophils (%) (Auto) 0.8 0.0-2.0 % Neutrophils # (Auto) 3.6 1.6-8.6 10 ^3/uL Lymphocytes # (Auto) 2.3 0.4-5.4 10 ^3/uL Monocytes # (Auto) 0.5 0-1.3 10 ^3/uL Eosinophils # (Auto) 0.1 0-0.8 10 ^3/uL Basophils # (Auto) 0.1 0-0.2 10 ^3/uL Nucleated Red Blood Cells 0.0 % Sodium Level 143 136-145 mmol/L Potassium Level 3.8 3.5-5.1 mmol/L Chloride Level 110 H 98-107 mmol/L Carbon Dioxide Level 24 20-31 mmol/L Anion Gap 9 5-15 Blood Urea Nitrogen 17 9-23 mg/dL Creatinine 0.94 0.550-1.02 mg/dL Glomerular Filtration Rate Calc 72 >90 mL/min BUN/Creatinine Ratio 18.1 10.0-20.0 Serum Glucose 93 74-106 mg/dL Calcium Level 9.3 8.7-10.4 mg/dL Total Bilirubin 0.6 0.2-1.0 mg/dL Aspartate Amino Transferase (AST) 23 13-40 U/L Alanine Aminotransferase (ALT) 20 7-40 U/L Alkaline Phosphatase 85 46-116 U/L Total Protein 6.0 5.7-8.2 g/dL Albumin 4.1 3.2-4.8 g/dL Hepatitis B Surface Antigen Negative Negative Hepatitis C Antibody Negative Negative Prothrombin Time 10.8 9.3-11.8 sec Prothrombin Time INR 1.02 0.9-1.15 Activated Partial Thromboplast Time 21.4 L 24.5-34.5 SEC Urine Color Light-orange Yellow Urine Clarity Turbid H Clear Urine pH 5.5 5.0-9.0 Urine Specific [place] 1.025 1.001-1.035 Urine Protein Trace H Negative Urine Ketones Negative Negative Urine Blood 3+ H Negative /uL Urine Nitrite Negative Negative Urine Bilirubin Negative Negative Urine Urobilinogen Normal Negative mg/dL Urine Leukocyte Esterase 2+ Negative /uL Urine RBC 451 0 - 4 /hpf Urine Microscopic WBC 40 H 0-5 /HPF Urine Squamous Epithelial Cells Many <5 /hpf Urine Bacteria None seen None Seen /hpf Urine Mucus Few None Seen Urine Yeast (Budding) Moderate None Seen /hpf Urine Glucose Normal Normal mg/dL [facility] [id number] [place] [id number] Ph: [phone] DIAGNOSTIC IMAGING Diagnostic Imaging Report : [id number] Signed PATIENT: JIMMIE EISENBERG ACCT: [id number] UNIT: [id number] : 1970 LOC: ER ROOM / BED: / AGE / SEX: 54 / F ADM STATUS: REG ER SERVICE 1145 ORDERING PHYSICIAN: AMY HART MD PROCEDURE(s): ABPL - CT AB PEL WO CON-NO ORAL OR IV REASON: pain ORDER NUMBER(s): [id number], ACCESSION NUMBER(s): [id number] CT CT AB PEL WO CON-NO ORAL OR IV INDICATION: pain EXAM DATE: 06/20/2025 11:49 AM COMPARISON: CT CT AB PEL WO CON-NO ORAL OR IV on DOS: 06/28/24, CT ABD PELVIS WO CONTRAST on DOS: 06/08/20 RADIATION DOSE: CTDIvol: 6 mGy, DLP: 306 mGy*cm PROCEDURE: Helical CT images were obtained of the abdomen and pelvis without IV contrast Sagittal and coronal reconstructions are provided. ORAL CONTRAST: None. ADDITIONAL IMAGES / REFORMATS: None All CT scans at this medical facility are performed using dose modulation techniques as appropriate to a performed exam including the following: Automated exposure control was utilized; adjustment of the MA and/or KV according to patient size; and use of iterative reconstruction technique. FINDINGS: LUNG BASE: Normal. LIVER: Normal. GALLBLADDER AND BILIARY TREE: No calcified gallstones. Normal caliber wall. No intra- or extrahepatic biliary ductal dilation. PANCREAS: Normal. SPLEEN: Normal. BOWEL: Normal. Normal appendix. ADRENALS: Normal. KIDNEYS AND URETER: Moderate right hydronephrosis with a 8 mm stone at the distal ureter at the UVJ with right perinephric fat stranding. Punctate nonobstructive left kidney stones. BLADDER: Normal. REPRODUCTIVE ORGANS: Normal. LYMPH NODES:No lymphadenopathy. PERITONEUM: No ascites or free air. No other fluid collection. VESSELS: Scattered atherosclerotic calcifications are noted. RETROPERITONEUM: Normal. ABDOMINAL WALL: Normal. BONES: Scattered osseous degenerative changes are noted. IMPRESSION: Moderate right hydronephrosis with a 8 mm stone at the distal ureter at the UVJ with right perinephric fat stranding. Punctate nonobstructive left kidney st ones. ATED BY: MEDARDO LOZA MD DICTATED DATE/TIME: 06/20/251234 SIGNED BY: MEDARDO LOZA MD SIGNED DATE/TIME: 06/20/251234 CC: [place] [address] Ph: [phone] DIAGNOSTIC IMAGING Diagnostic Imaging Report : [id number] Signed PATIENT: JIMMIE EISENBERG ACCT: [id number] UNIT: [id number] : 1970 [facility]GE / SEX: 54 / F ADM STATUS: ADM IN SERVICE 0925 ORDERING PHYSICIAN: MEDARDO LOZA MD PROCEDURE(s): KIDUS - KIDNEY REASON: hydronephrosis ORDER NUMBER(s): [id number], ACCESSION NUMBER(s): [id number] US KIDNEY HISTORY: hydronephrosis COMPARISON: US KIDNEY on DOS: 06/20/25, CT CT AB PEL WO CON-NO ORAL OR IV on DOS: 06/20/25, CT CT AB PEL WO CON-NO ORAL OR IV on DOS: 06/28/24 TECHNIQUE: Transverse and longitudinal grayscale and color doppler images were obtained of the kidneys and bladder. FINDINGS: Right kidney: Size: 11.5 cm Cortical thickness: Normal Echogenicity: Normal Stones: Yes Masses: None Hydronephrosis: Yes Ureters: Hydroureter Other: None Other: None. IMPRESSION: Similar moderate right hydronephrosis. Similar right UVJ stone measures 11 mm. ATED BY: MEDARDO LOZA MD DICTATED DATE/TIME: 06/21/25 1103 SIGNED BY: MEDARDO LOZA MD SIGNED DATE/TIME: 06/21/25 1103 CC: [place] [address] Ph: [phone] DIAGNOSTIC IMAGING Diagnostic Imaging Report : [id number] Signed PATIENT: JIMMIE EISENBERG ACCT: [id number] UNIT: [id number] : 1970 [facility]GE / SEX: 54 / F ADM STATUS: ADM IN SERVICE 1232 ORDERING PHYSICIAN: DEANGELO JIMÉNEZ MD PROCEDURE(s): PERNEPH - PERCUTANEOUS NEPHROSTOMY REASON: DRAIN PL ORDER NUMBER(s): [id number], ACCESSION NUMBER(s): [id number] PERCUTANEOUS NEPHROSTOMY, HISTORY: Right nephrostomy tube placement for obstructive 8 mm stone. PROCEDURE: Informed consent was obtained. The patient was placed on the fluoroscopic table in a prone position and IV sedation administered. The right flank was prepped with chlorhexidine which was allowed to dry and draped in the usual sterile fashion. Time out was performed. and the soft tissues infiltrated with 1% lidocaine local anesthetic. Utilizing ultrasound guidance, a 21 gauge Accu Stick needle was advanced from a posterolateral approach into an lower pole calyx, and a small amount of contrast was injected under fluoroscopy to confirm positioning. Over a mandril wire, exchange was made to a non-vascular access set, through which was advanced an 0.035 wire. Following serial dilation, an 8.5 Tongan multipurpose nephrostomy catheter was placed with tip pigtailed within the renal pelvis. Position was confirmed with antegrade nephrostogram. The catheter was secured in place and connected to gravity drainage. A sterile dressing was applied. No immediate complication was identified. DAP 200 FLUOROSCOPY TIME: 1.5 minutes. CONTRAST USED: 15 mL . SEDATION: Dr. Vangie Loza was personally responsible for the administration of moderate sedation during the procedure performed, including the use of an independent trained observer who had no other duties during the procedure. The drugs utilized were IV fentanyl and versed (see nursing log for details). The total time of supervision by the attending physician was approximately 30 minutes. FINDINGS: Dilated right renal collecting system involving the calyces/renal pelvis/ureter to the level of the distal ureter. New 8.5 bermudian nephrostomy tube via a posterior lower pole calyceal access, with loop coiled within the renal pelvis. IMPRESSION: Right hydronephrosis due to obstructive 8 mm stone, status post placement of 8.5 bermudian right percutaneous nephrostomy catheter. PLAN: Routine catheter care. ATED BY: MEDARDO LOZA MD DICTATED DATE/TIME: 06/21/251254 SIGNED BY: MEDARDO LOZA MD SIGNED DATE/TIME: 06/21/25 125 CC: Assessment/Plan Problem List: (1) Intractable abdominal pain (2) Urinary tract infection (3) Ureterolithiasis (4) Hydronephrosis Primary Diagnosis Nephrolithiasis Admitting Diagnosis: Hydronephrosis Plan Patient underwent right PNT placement per IR service. Pain control. Stable for d/c and f/u with urology for outpt ESWL vs. URSLL with removal of nephrostomy tube TBA. Plan discussed with: Patient, Daughter RAIN CABRALMatt Gonzalez NP Jun 21, 2025 18:27 ZACK PATTEN MD Jun 21, 2025 21:46
[2025-06-22 01:00] VITALS: BP 111/84; PULSE 82; RESP 16; TEMP 98.4; O2SAT 96
[2025-06-22 05:00] VITALS: BP 101/61; PULSE 80; RESP 16; TEMP 98.4; O2SAT 95
[2025-06-22 06:31] LABS: Hematocrit 35.9 % (36.0-46.0); Hemoglobin 12.6 g/dL (12.2-16.2); Mean Corpuscular Hemoglobin 31.3 pg (28.0-32.0); Mean Corpuscular Volume 89.2 fL (80.0-100.0); Nucleated Red Blood Cells % 0.1 %
[2025-06-22 06:36] LABS: Anion Gap 8 (5-15); Carbon Dioxide 26 mmol/L (20-31); Potassium 3.6 mmol/L (3.5-5.1); Sodium 143 mmol/L (136-145)
[2025-06-22 06:37] LABS: Calcium 9.3 mg/dL (8.7-10.4); Chloride 109 mmol/L (98-107)
[2025-06-22 06:42] LABS: BUN/Creatinine Ratio 20.0 (10.0-20.0); Blood Urea Nitrogen 13 mg/dL (9-23); Glucose 95 mg/dL (74-106)
[2025-06-22 09:00] VITALS: BP 92/56; PULSE 73; RESP 16; TEMP 98.5; O2SAT 94
[2025-06-22] MEDS ORDERED: TAMS-35 PO (11:10)
[2025-06-22] MEDS ORDERED: HYDR-4902 PO (11:10)
--- NOTE | 2025-06-22 11:14 | DVHDS2 ---
Discharge Summary Date of Admission Jun 20, 2025 at 15:17 Date of Discharge: Jun 22, 2025 Admitting Diagnosis Hydronephrosis, Obstructive uropathy Leukocytosis, Illicit drug use, Tobacco dependence Labs/Diagnostic Data: Laboratory Results Test 06/22/25 05:28 06/21/25 08:45 06/20/25 15:28 06/20/25 11:45 White Blood Count 7.0 10^3/uL (4.4-10.8) Red Blood Count 4.03 10^6/uL (4.0-5.20) Hemoglobin 12.6 g/dL (12.2-16.2) Hematocrit 35.9 % (36.0-46.0) Mean Corpuscular Volume 89.2 fL (80.0-100.0) Mean Corpuscular Hemoglobin 31.3 pg (28.0-32.0) Mean Corpuscular Hemoglobin Concent 35.1 g/dL (32.0-36.0) Red Cell Distribution Width 13.4 % (11.8-14.3) Platelet Count 258 10^3/uL (140-450) Mean Platelet Volume 7.9 fL (6.9-10.8) Neutrophils (%) (Auto) 53.1 % (37.0-80.0) Lymphocytes (%) (Auto) 35.0 % (10.0-50.0) Monocytes (%) (Auto) 7.5 % (0.0-12.0) Eosinophils (%) (Auto) 3.6 % (0.0-7.0) Basophils (%) (Auto) 0.8 % (0.0-2.0) Neutrophils # (Auto) 3.7 10 ^3/uL (1.6-8.6) Lymphocytes # (Auto) 2.4 10 ^3/uL (0.4-5.4) Monocytes # (Auto) 0.5 10 ^3/uL (0-1.3) Eosinophils # (Auto) 0.2 10 ^3/uL (0-0.8) Basophils # (Auto) 0.1 10 ^3/uL (0-0.2) Nucleated Red Blood Cells 0.1 % Sodium Level 143 mmol/L (136-145) Potassium Level 3.6 mmol/L (3.5-5.1) Chloride Level 109 mmol/L (98-107) Carbon Dioxide Level 26 mmol/L (20-31) Anion Gap 8 (5-15) Blood Urea Nitrogen 13 mg/dL (9-23) Creatinine 0.65 mg/dL (0.550-1.02) Glomerular Filtration Rate Calc 104 mL/min (>90) BUN/Creatinine Ratio 20.0 (10.0-20.0) Serum Glucose 95 mg/dL (74-106) Calcium Level 9.3 mg/dL (8.7-10.4) Total Bilirubin 0.6 mg/dL (0.2-1.0) Aspartate Amino Transferase (AST) 23 U/L (13-40) Alanine Aminotransferase (ALT) 20 U/L (7-40) Alkaline Phosphatase 85 U/L (46-116) Total Protein 6.0 g/dL (5.7-8.2) Albumin 4.1 g/dL (3.2-4.8) Hepatitis B Surface Antigen Negative (Negative) Hepatitis C Antibody Negative (Negative) Prothrombin Time 10.8 sec (9.3-11.8) Prothrombin Time INR 1.02 (0.9-1.15) Activated Partial Thromboplast Time 21.4 SEC (24.5-34.5) Urine Color Light-orange (Yellow) Urine Clarity Turbid (Clear) Urine pH 5.5 (5.0-9.0) Urine Specific Lequire 1.025 (1.001-1.035) Urine Protein Trace (Negative) Urine Ketones Negative (Negative) Urine Blood 3+ /uL (Negative) Urine Nitrite Negative (Negative) Urine Bilirubin Negative (Negative) Urine Urobilinogen Normal mg/dL (Negative) Urine Leukocyte Esterase 2+ /uL (Negative) Urine RBC 451 /hpf (0 - 4) Urine Microscopic WBC 40 /HPF (0-5) Urine Squamous Epithelial Cells Many /hpf (<5) Urine Bacteria None seen /hpf (None Seen) Urine Mucus Few (None Seen) Urine Yeast (Budding) Moderate /hpf (None Seen) Urine Glucose Normal mg/dL (Normal) Other Laboratory Tests 06/22/25 05:28 Brief Hx & Hospital Course: This is a 54 years old female with past medical history of kidney stone came to emergency department because severe abdominal pain. The patient stated her pain associated with nausea but no vomiting. The patient denied any hematuria. The patient CT scan of abdomen and pelvis showed: Moderate right hydronephrosis with a 8 mm stone at the distal ureter at the UVJ with right perinephric fat stranding. Punctate nonobstructive left kidney stones. The patient was admitted. The patient was given IV antibiotic with Rocephin 1 g IV q.day. The patient was seen by urologist. Recommend right nephrostomy tube placed by interventional radiologist. After the procedure the patient is stable. The patient did not complain of any abdominal pain on nausea or vomiting. Urology recommended follow up as outpatient in 2-4 weeks. Follow up with primary care physician 1-2 weeks. Activity as tolerated. Diet per home diet. Physical exam: HEENT: Normocephalic atraumatic pupils equal react to light and accommodation. Extraocular muscles intact, conjunctiva pink, oropharynx moist, no thrush, no exudate. Lymphatic: No lymphadenopathy Cardiovascular exam: S1, S2 was heard. No murmurs, rubs, gallops Lung: Clear on auscultation bilaterally, no wheeze, rale, rhonchi. GI: Abdominal soft, nondistended, nontenderness, positive bowel sounds. Extremity: No crepitus, cyanosis, edema. Pedal pulses present bilateral. Full range of motion. Skin: Normal turgor, no rash. Psych: Alert, oriented x3. Neurology: No focal deficits, cranial nerve II to XII grossly intact. This medical document was created using an electronic medical record system with [employer] direct computerized dictation system. Although this document has been carefully reviewed, there may still be some phonetic and typographical errors. These areas are purely typographical due to imperfections of the software programs, and do not reflect any compromise in the patient's medical care. Condition at Discharge: Stable Final Diagnosis/Problems List Hydronephrosis, Nephrolithiasis Obstructive uropathy Leukocytosis, Illicit drug use, Tobacco dependence Discharge Disposition: Home Discharge Instruct/Medications Diet: Cardiac 2g Na,low cholest Activity: No Restrictions, As Tolerated Follow Up/Referral: pcp 1-[address] West, urologist per schedule Medications: Levaquin 500mg po daily Eighty Eight 5/325 one tab every 6hPRn Flomax 0.4 mg PO qhs Scheduled Aspirin (Aspir-Low Ec), 81 MG PO DAILY Tamsulosin Hcl (Flomax), 0.4 MG PO QPM Scheduled PRN Hydrocodone-Acetaminophen (Hydrocodone Bitartrate/AC 5-325 mg), 1 TAB PO Q4HP PRN Discharge Statement: "Patient was advised to return to the ER or call 911 if any headaches, dizziness, shortness of breath, chest pain, abdominal pain, bleeding, fevers, or worsening of medical condition. Patient was counseled about treatment plan, medications, possible side effects, patientverbalized understanding. All questions were answered to the best of my ability. This discharge took greater then 30 minutes in planning, reviewing documentation, counseling the patient, and discussing with other team members." ASSESSMENT ASSESSMENT Assessment kidney stone Obstructive uropathy Date of Service: Jun 22, 2025 Billing Provider: DEANGELO JIMÉNEZ MD Common Visit Codes: 45248-EEC/OBS DISCH DAY >30min DEANGELO JIMÉNEZ MD Jun 22, 2025 11:14
[2025-06-22 13:00] VITALS: BP 115/72; PULSE 82; RESP 16; TEMP 97.7; O2SAT 97
[2025-06-22 15:08] VITALS: BP 115/72; PULSE 82; RESP 16; TEMP 36.5; O2SAT 97
== END 2025-06-22 16:10 | disposition home or self-care (01) | DRG 463 ==
LOC: ER 11:33 → OVERFLOW 15:17 → CENTRAL 06-21 15:33
PROVIDERS: ADMIT Internal Medicine; ATTEND Internal Medicine
PROC: 0T9030Z Drainage of Right Kidney with Drainage Device, Percutaneous Approach (ICD-10-PCS; principal; 2025-06-21)
DX: N13.6 Pyonephrosis (principal); N17.0 Acute kidney failure with tubular necrosis; F17.210 Nicotine dependence, cigarettes, uncomplicated; F19.90 Other psychoactive substance use, unspecified, uncomplicated; Z82.49 Family history of ischemic heart disease and other diseases of the circulatory system; Z87.442 Personal history of urinary calculi; Z88.8 Allergy status to other drugs, medicaments and biological substances
CPT/HCPCS: 36415; 50432; 74176; 74425; 76775; 76942; 80048; 80053; 81001; 85025; 85610; 85730; 86803; 87340; 96365; 96375; 99152; G0378; J1885; J2250; J2405; Q9967

== ENCOUNTER 2025-09-08 05:14 | Emergency (ER) | payer MEDICAID ==
[~2025-09-08] VITALS: Ht 157.5 cm; Wt 57.4 kg
[~2025-09-08 05:14] MED LIST changes: +HYDR-4902 PO; +TAMS-35 PO
--- NOTE | 2025-09-08 05:55 | ED.PDOC ---
General HPI Comments 54-year-old female presented to the ER with the chief complaint of leakage of the nephrostomy bag. Patient was recently hospitalized here in the month of May 2025, when a right sided IR guided nephrostomy tube was placed secondary to 8 cm stones and hydronephrosis. Patient followed up with the Urology as outpatient, went to [facility] today for urologic procedure, which was canceled as the patient's urine was positive for methamphetamine. Per patient last use methamphetamine was 6 hours back. Patient denies any fever, chills, flank pain, abdominal pain, urinary symptoms at this time. She denies nausea/vomiting diarrhea or constipation or any other systemic symptoms. She does report that she is on p.o. antibiotics but can not recall the name. Patient seen and examined in ER lobby. She is vitally stable, normotensive. Right-sided nephrostomy tube is draining yellowish urine, patient denies any symptoms at this time. Patient was advised regarding further workup including lab work and imaging which she denied and she would like to go home at this time. Nephrostomy bag is being replaced. Chief Complaint: Tube Replacement Time Seen by MD: 05:23 Primary Care Provider: Sachink Allergies: Coded Allergies: Prochlorperazine (Unverified Allergy, Unknown, 07/07/24) Home Meds Active Scripts Hydrocodone-Acetaminophen (Hydrocodone Bitartrate/AC 5-325 mg) 1 Tab Tab, 1 TAB PO Q4HP PRN, #20 TAB Prov:DEANGELO JIMÉNEZ MD 06/22/25 Tamsulosin Hcl (Flomax) 0.4 Mg Cap, 0.4 MG PO QPM, #30 CAP Prov:DEANGELO JIMÉNEZ MD 06/22/25 Aspirin (Aspir-Low Ec) 81 Mg Tb, 81 MG PO DAILY, #30 TAB Prov:MO MULLER MD 09/07/19 Mode of Arrival: Ambulatory Past Medical History PAST MEDICAL HISTORY: Kidney Stones Past Medical History (Other): Nephrolithiasis, hydronephrosis status post PCNL Surgical History: Denies all surgeries 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 Pertinent 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 History Family History Family History: Family hx of Cancer, Family hx of HTN Social History Smoker: Cigarettes Alcohol: Occasionally Drugs: Methamphetamine Lives In: Home Constitutional: denies: chills, diaphoresis, fatigue, fever, malaise, sweats, weakness, others EENTM: denies: blurred vision, double vision, ear bleeding, ear discharge, ear drainage, ear pain, ear ringing, eye pain, eye redness, hearing loss, mouth pain, mouth swelling, nasal discharge, nose bleeding, nose congestion, nose pain, photophobia, tearing, throat pain, throat swelling, voice changes, others Respiratory: denies: cough, hemoptysis, orthopnea, SOB at rest, shortness of breath, SOB with excertion, stridor, wheezing, others Cardiovascular: denies: chest pain, dizzy spells, diaphoresis, Dyspnea on exertion, edema, irregular heart beat, left arm pain, lightheadedness, palpitations, PND, syncope, others Gastrointestinal: denies: abdomen distended, abdominal pain, blood streaked bowels, constipated, diarrhea, dysphagia, difficulty swallowing, hematemesis, melena, nausea, poor appetite, poor fluid intake, rectal bleeding, rectal pain, vomiting, others Genitourinary: denies: abnormal vagina bleeding, burning, dyspareunia, dysuria, flank pain, frequency, hematuria, incontinence, pain, , vagina discharge, urgency, others Neurological: denies: dizziness, fainting, headache, left sided numbness, left sided weakness, numbness, paresthesia, pre-existing deficit, right sided numbness, right sided weakness, seizure, speech problems, tingling, tremors, weakness, others Musculoskeletal: denies: back pain, gout, joint pain, joint swelling, muscle pain, muscle stiffness, neck pain, others Integumetry: denies: bruises, change in color, change in hair/nails, dryness, laceration, lesions, lumps, rash, wounds, others Allergic/Immunocompromised: denies: Difficulty Healing, Frequent Infections, Hives, Itching, others Hematologic/Lymphatic: denies: anemia, blood clots, easy bleeding, easy bruising, swollen glands, others Endocrine: denies: excessive hunger, excessive sweating, excessive thirst, excessive urination, flushing, intolerance to cold, intolerance to heat, unexplained weight gain, unexplained weight loss, others Psychiatric: denies: anxiety, bipolar disorder, depression, hopeless, panic disorder, schizophrenia, sleepless, suicidal, others Physical Exam General Appearance: No Apparent Distress, Normal HEENT: NOT DONE Neck: NOT DONE Respiratory: Decreased Breath Sounds, No Accessory Muscle Use, No Respiratory Distress Cardiovascular: No Edema, Regular Rate/Rhythm Breast Exam: Deferred Gastrointestinal: No Organomegaly, Non Tender, No Pulsatile Mass, Normal Bowel Sounds, Soft, Other (Right-sided nephrostomy tube present. No CVA tenderness.) Genitalia: Deferred Pelvic: Deferred Rectal: Deferred Extremities: No calf tenderness, Normal capillary refill, Normal inspection, Normal range of motion, Non-tender, No pedal edema Neurologic: NOT DONE Cerebellar Function: NOT DONE Reflexes: NOT DONE Skin: Dry Lymphatic: NOT DONE Was a procedure done? Was a procedure done?: No Differential Diagnosis Kidney stone (Female): Pyelonephritis, Renal failure, Urolithiasis Urinary Problem (Female): Urolithiasis, UTI X-Ray, Labs, Meds, VS Vital Signs Date Time Temp Pulse Resp B/P (MAP) Pulse Ox O2 Delivery O2 Flow Rate FiO2 09/08/25 05:16 97.4 96 18 131/80 96 97.4 Time of 1ST Reevaluation: 06:00 Reevaluation 1ST: Denied further workup Consultation: PCP Patient Education/Counseling: Diagnosis, Treatment Family Education/Counseling: No Family Present SEPSIS Sepsis Screen Date sepsis recognized/suspect: Sep 08, 2025 Time Sepsis recognized/suspect: 0516 Recent Procedure: No On Antibiotic Therapy: No Respiratory Rate >20: No Heart Rate >90: Yes Temp<36 C (96.8 F) or >38.3 C: No SBP <90 or MAP <65 mmHG: No New Acute Mental Status Change: No Is the patient on CPAP, BIPAP,: No Physician Orders Communication Order (09/08/25 05:55) Vital Signs Date Time Temp Pulse Resp B/P (MAP) Pulse Ox O2 Delivery O2 Flow Rate FiO2 09/08/25 05:16 97.4 96 18 131/80 96 97.4 Departure 1 Departure Time of Disposition: 08:00 Impression: Primary Impression: Encounter for attention to artificial opening Disposition: 01 HOME / SELF CARE / HOMELESS Condition: Fair Comments She is vitally stable, normotensive. Right-sided nephrostomy tube is draining cloudy urine, patient denies any symptoms at this time. Patient was advised regarding further workup including lab work and imaging which she denied and she would like to go home at this time. Nephrostomy bag is being replaced. Tube dressing clean, dry and intact Follow up with primary care physician in the next 3 days Follow up with the Urology/[facility] as soon as possible Continue p.o. antibiotics as advised by Urology Please return to ER in case experienced any fever, chills, difficulty urinating, blood in urine, nausea, vomiting, worsening or any new symptoms. Critical Care Note Critical Care Time?: No Stability Stability form required: FLAVIA Emery RESIDENT Sep 08, 2025 05:55
[2025-09-08 08:11] VITALS: BP 108/91; PULSE 95; RESP 18; TEMP 98.2; O2SAT 97
== END 2025-09-08 08:15 | disposition home or self-care (01) ==
LOC: ER 05:14
DX: T83.032A Leakage of nephrostomy catheter, initial encounter (principal); F17.210 Nicotine dependence, cigarettes, uncomplicated; Z79.82 Long term (current) use of aspirin; Z79.899 Other long term (current) drug therapy; Z98.890 Other specified postprocedural states; Z87.442 Personal history of urinary calculi; Y92.89 Other specified places as the place of occurrence of the external cause

== ENCOUNTER 2025-10-09 21:54 | Inpatient (IN) | payer MEDICAID ==
[~2025-10-09] VITALS: Ht 154.9 cm; Wt 76.0 kg
--- NOTE | 2025-10-09 22:35 | ED.PDOC ---
History of Present Illness HPI Comments 55-year-old female presents for urostomy tube evaluation. Patient reports having the same urostomy tube in her right flank for the past 6 months since initial placement for kidney stones. She comments on having associated pain to right flank area, currently. Patient has no current urologist. She also repo rts on tube still draining and having previous incidences of it getting infected and needing to be placed on antibiotics following subsequent ED visits. Patient denies any further acute symptoms. REVIEW OF SYSTEMS: General: No fever, no chills, or fatigue HEENT: No sore throat, no earache, no congestion, no neck pain. Cardiac: No chest pain. No palpitations. Lungs: No shortness of breath, no cough. GI: No nausea, no vomiting, no diarrhea, no constipation, no abdominal pain : Right flank pain. No dysuria, frequency, or urgency. No hematuria. Musculoskeletal: No joint pain , no joint swelling, no extremity edema. Skin: No rash, no itching. Neuro: No headache, no dizziness, no weakness (And as sated in HPI) PHYSICAL EXAM: General: Awake, alert and oriented. No acute distress. Skin: Skin surrounding urostomy tube in right flank is clean, dry, and nonerythematous. Remaining skin is warm, dry and intact. Appropriate color for ethnicity. HEENT: The head is normocephalic and atraumatic. Conjunctivae are clear without exudates or hemorrhage. Sclera is non-icteric. Eyelids are normal in appearance without swelling or lesions. Oral mucosa is pink and moist Neck: The neck is supple with normal range of motion. No JVD. Cardiac: Heart rate and rhythm are normal. No murmurs, gallops, or rubs are auscultated. Respiratory: No signs of respiratory distress. Lung sounds are clear in all lobes bilaterally without rales, rhonchi, or wheezes. Abdominal: Abdomen is soft, non-tender without distention, guarding or rigidity. Bowel sounds are present and normoactive in all four quadrants. Musculoskeletal: Indwelling urostomy tube in right flank with no tenderness to palpation. Extremities: Upper and lower extremities are atraumatic in appearance without deformity or edema. Neurological: The patient is awake, alert and oriented to person, place, and time with normal speech. Speech is clear. There is no facial asymmetry. Psychiatric: Appropriate mood and affect. Good judgement and insight. Chief Complaint: Wound Check Time Seen by MD: 22:25 Primary Care Provider: Unk Reviewed Notes: Nurses Notes, Medications, Allergies Allergies: Coded Allergies: Prochlorperazine (Unverified Allergy, Unknown, 07/07/24) Home Meds Active Scripts Hydrocodone-Acetaminophen (Hydrocodone Bitartrate/AC 5-325 mg) 1 Tab Tab, 1 TAB PO Q4HP PRN, #20 TAB Prov:DEANGELO JIMÉNEZ MD 06/22/25 Tamsulosin Hcl (Flomax) 0.4 Mg Cap, 0.4 MG PO QPM, #30 CAP Prov:DEANGELO JIMÉNEZ MD 06/22/25 Aspirin (Aspir-Low Ec) 81 Mg Tb, 81 MG PO DAILY, #30 TAB Prov:MO MULLER MD 09/07/19 Information Source: Patient Mode of Arrival: Ambulatory Severity: Moderate Timing: Hours Duration: Since onset Prehospital treatment: None Past Medical History PAST MEDICAL HISTORY: Kidney Stones Surgical History (Other): Urostomy tube MEDIC TECHNICIAN History: No Pertinent MEDIC TECHNICIAN History Family History Family History: Family hx of Cancer, Family hx of HTN Social History Smoker: Cigarettes Alcohol: Occasionally Drugs: Methamphetamine Lives In: Home Was a procedure done? Was a procedure done?: No Differential Dx Considerations may include: Differential diagnosis includes but is not limited to post-urostomy tube complication, pyelonephritis, nephrolithiasis, AAA, musculoskeletal pain, urinary tract infection, cholecystitis, appendicitis, other X-Ray, Labs, Meds, VS Vital Signs Date Time Temp Pulse Resp B/P (MAP) Pulse Ox O2 Delivery O2 Flow Rate FiO2 10/09/25 21:57 98.5 86 16 114/84 86 98.5 Lab Test 10/09/25 22:37 Range/Units White Blood Count 7.7 4.4-10.8 10^3/uL Red Blood Count 4.48 4.0-5.20 10^6/uL Hemoglobin 13.6 12.2-16.2 g/dL Hematocrit 40.4 36.0-46.0 % Mean Corpuscular Volume 90.2 80.0-100.0 fL Mean Corpuscular Hemoglobin 30.3 28.0-32.0 pg Mean Corpuscular Hemoglobin Concent 33.6 32.0-36.0 g/dL Red Cell Distribution Width 13.9 11.8-14.3 % Platelet Count 319 140-450 10^3/uL Mean Platelet Volume 7.8 6.9-10.8 fL Neutrophils (%) (Auto) 50.0 37.0-80.0 % Lymphocytes (%) (Auto) 39.5 10.0-50.0 % Monocytes (%) (Auto) 6.6 0.0-12.0 % Eosinophils (%) (Auto) 2.9 0.0-7.0 % Basophils (%) (Auto) 1.0 0.0-2.0 % Neutrophils # (Auto) 3.8 1.6-8.6 10 ^3/uL Lymphocytes # (Auto) 3.0 0.4-5.4 10 ^3/uL Monocytes # (Auto) 0.5 0-1.3 10 ^3/uL Eosinophils # (Auto) 0.2 0-0.8 10 ^3/uL Basophils # (Auto) 0.1 0-0.2 10 ^3/uL Nucleated Red Blood Cells 0.1 % Sodium Level 143 136-145 mmol/L Potassium Level 4.2 3.5-5.1 mmol/L Chloride Level 110 H 98-107 mmol/L Carbon Dioxide Level 26 20-31 mmol/L Anion Gap 7 5-15 Blood Urea Nitrogen 10 9-23 mg/dL Creatinine 0.77 0.550-1.02 mg/dL Glomerular Filtration Rate Calc 90 >90 mL/min BUN/Creatinine Ratio 13.0 10.0-20.0 Serum Glucose 82 74-106 mg/dL Calcium Level 9.3 8.7-10.4 mg/dL Time of 1ST Reevaluation: 22:25 Reevaluation 1ST: Unchanged Patient Education/Counseling: Other (Need for admission) Family Education/Counseling: No Family Present SEPSIS Sepsis Screen Date sepsis recognized/suspect: Oct 09, 2025 Time Sepsis recognized/suspect: 2199 Recent Procedure: No On Antibiotic Therapy: No Respiratory Rate >20: No Heart Rate >90: No Temp<36 C (96.8 F) or >38.3 C: No SBP <90 or MAP <65 mmHG: No New Acute Mental Status Change: No Is the patient on CPAP, BIPAP,: No Physician Orders Saline Lock (10/09/25 22:30) Notify Md If Abnormal Vs (10/09/25 22:30) Vital Signs Q2H (10/09/25 22:30) Urinalysis (10/09/25 22:30) Ct Ab Pel Wo Con-No Oral Or Iv (10/09/25 22:30) Vital Signs Date Time Temp Pulse Resp B/P (MAP) Pulse Ox O2 Delivery O2 Flow Rate FiO2 10/09/25 21:57 98.5 86 16 114/84 86 98.5 Laboratory Tests Test 10/09/25 22:37 White Blood Count 7.7 10^3/uL (4.4-10.8) Departure 1 Departure Time of Disposition: 01:35 Impression: Primary Impression: H/O insertion of nephrostomy tube Disposition: HOME / SELF CARE / HOMELESS Condition: Stable Comments MDM: 55-year-old female right flank pain. Nephrostomy tube placed in May of this year. Patient admitted for further evaluation and urology consultation. Extensive evaluation was performed in attempt to identify or rule out: (See differential diagnosis section) The following tests were ordered, and results were reviewed by me and discussed with patient: (See diagnostic results section) The following test were independently interpreted by me: UA, BMP, CBC, I reviewed and agreed with the following test results read by other providers: CT of the abdomen and pelvis without contrast I reviewed the following notes from the pt's past medical encounters: Encounter May of 2025 for nephrolithiasis Decision regarding hospitalization or escalation of hospital level of care: Risk and benefits of admission for further treatment of patient's condition was considered. Due to patient's current clinical condition, high risk of decline and poor outcome if discharged and need for further inpatient management and monitoring, patient will be admitted to the hospital. Critical Care Note Critical Care Time?: No Stability Stability form required: No Heart Score Heart Score: Heart Score Response (Comments) Value History N/A 0 EKG N/A 0 Age N/A 0 Risk Factors N/A 0 Troponin N/A 0 Total 0 I personally scribed for DELFINO RAMOS MD ([email or web address]) on 10/09/25 at 22:35. Electronically submitted by Mitch Flower ([email or web address]). DELFINO RAMOS MD Oct 09, 2025 22:35
[2025-10-09 22:53] LABS: Hematocrit 40.4 % (36.0-46.0); Hemoglobin 13.6 g/dL (12.2-16.2); Mean Corpuscular Hemoglobin 30.3 pg (28.0-32.0); Mean Corpuscular Volume 90.2 fL (80.0-100.0); Nucleated Red Blood Cells % 0.1 %
[2025-10-09 23:04] LABS: Potassium 4.2 mmol/L (3.5-5.1); Sodium 143 mmol/L (136-145)
[2025-10-09 23:05] LABS: Anion Gap 7 (5-15); Carbon Dioxide 26 mmol/L (20-31)
[2025-10-09 23:06] LABS: Calcium 9.3 mg/dL (8.7-10.4)
[2025-10-09 23:11] LABS: BUN/Creatinine Ratio 13.0 (10.0-20.0); Blood Urea Nitrogen 10 mg/dL (9-23); Glucose 82 mg/dL (74-106)
[2025-10-09 23:23] LABS: Chloride 110 mmol/L (98-107)
--- NOTE | 2025-10-10 00:41 | DVH ---
Exam: CT CT AB PEL WO CON-NO ORAL OR IV History: Right flank pain, urostomy in place Comparison Study: CT CT AB PEL WO CON-NO ORAL OR IV on DOS: 06/20/25, CT CT AB PEL WO CON-NO ORAL OR IV on DOS: 06/28/24, CT ABD PELVIS WO CONTRAST on DOS: 06/08/20 Technique: Multidetector spiral CT of the abdomen was performed from lung bases to pubic symphysis. Imaging was performed without IV contrast. Axial, coronal and sagittal multiplanar reformats were obtained from the axial data set by the technologist. Radiation Dose : 1. Abdomen/Pelvis: CTDIvol 10.63 mGy, DLP 567.91 mGy*cm. Findings: Evaluation of solid organs is limited due to lack of intravenous contrast use. Streak and beam hardening artifact from arms down positioning further limits assessment. Lower Chest: No acute findings. Liver: Unremarkable. Gallbladder and Biliary Tree: Gallbladder is collapsed or surgically absent. Pancreas: Unremarkable. Spleen: Unremarkable. Adrenal Glands: Unremarkable. Kidneys/Ureters: Right percutaneous nephrostomy tube appears appropriately positioned, with trace adjacent gas compatible with catheter usage. No hydronephrosis. Punctate stones in the left collecting system. Bladder: Grossly unremarkable for degree of distention. Pelvic Organs: Unremarkable Bowel: Normal caliber without wall thickening. No evidence of appendicitis. Vasculature: Unremarkable. Lymphadenopathy: No obvious adenopathy. Peritoneum: No ascites, free air, or fluid collection. Abdominal Wall: No significant hernia. Musculoskeletal: No acute abnormality. Degenerative change of the spine. Degenerative L5-S1 spondylosis. IMPRESSION: 1. Adequately positioned right percutaneous nephrostomy. No hydronephrosis. 2. Punctate left nephroliths. Radiation optimization: All CT scans at this facility use at least one of these dose optimization techniques: automated exposure control mA and/or kV adjustment per patient size (includes targeted exams where dose is matched to clinical indication) or iterative reconstruction.
[2025-10-10] MEDS ORDERED: ONDANSETRON HCL 4 MG/2 ML VIAL IV PRN (04:30)
[2025-10-10] MEDS ORDERED: ACETAMINOPHEN 325 MG TAB PO PRN (04:30)
[2025-10-10] MEDS ORDERED: HYDROcodone-ACET 5/325MG TAB PO PRN (04:30)
[2025-10-10] MEDS ORDERED: TEMAZEPAM 15 MG CAP PO PRN (04:30)
--- NOTE | 2025-10-10 04:38 | DVHHP2 ---
History of Present Illness Reason for Visit: Nephrostomy tube evaluation History of Present Illness 55-year-old female presents for evaluation of right nephrostomy tube. Patient reports having her right nephrostomy tube inserted six months ago secondary to kidney stone. She states tube has not been changed since then. She also complains of mild right flank pain. No fever or chills. No nausea or vomiting. Of note, patient was admitted for months ago with similar complaints and was seen by Urology then. During discharge patient was advised to follow up with Urology in three weeks post discharge. Patient has not been able to see a urologist since then. Past Medical History Kidney stones Past Surgical History Nephrostomy tube Family History Noncontributory Smoke: <1 pack per day ALCOHOL: occassional Drugs: Other (Methamphetamine) Review of Systems Review of Systems Review of systems are currently negative otherwise addressed in HPI. Allergies: Coded Allergies: Prochlorperazine (Unverified Allergy, Unknown, 07/07/24) Exam Vital Signs Vital Signs Date Time Temp Pulse Resp B/P (MAP) Pulse Ox O2 Delivery O2 Flow Rate FiO2 10/10/25 03:19 97.5 74 18 113/81 (92) 98 97.5 Exam Gen: 55-year-old female in no apparent distress Skin: Warm, dry, normal color and texture, no rash. HEENT: Normocephalic atraumatic, mucous membranes moist and pink. Neck: Cervical and supraclavicular nodes normal without enlargement, trachea is midline, thyroid gland is normal without masses. Pulmonary: Clear to auscultation and percussion bilaterally. Cardiac: Regular rate and rhythm. No murmur Abdomen: Soft, nontender, nondistended, bowel sounds present all 4 quadrants, no guarding, no rigidity, no organomegaly, right flank nephrostomy tube. Extremities: No cyanosis, clubbing, no edema Neuro: Cranial nerves II through XII grossly intact, normal affect and speech, no focal motor deficits. Labs/Xrays ORDERING PHYSICIAN: DELFINO RAMOS MD PROCEDURE(s): ABPL - CT AB PEL WO CON-NO ORAL OR IV REASON: Right flank pain, urostomy in place ORDER NUMBER(s): [id number], ACCESSION NUMBER(s): [id number] Exam: CT CT AB PEL WO CON-NO ORAL OR IV History: Right flank pain, urostomy in place Comparison Study: CT CT AB PEL WO CON-NO ORAL OR IV on DOS: 06/20/25, CT CT AB P EL WO CON-NO ORAL OR IV on DOS: 06/28/24, CT ABD PELVIS WO CONTRAST on DOS: 06/08/20 Technique: Multidetector spiral CT of the abdomen was performed from lung bases to pubic symphysis. Imaging was performed without IV contrast. Axial, coronal and sagittal multiplanar reformats were obtained from the axial data set by the technologist. Radiation Dose : 1. Abdomen/Pelvis: CTDIvol 10.63 mGy, DLP 567.91 mGy*cm. Findings: Evaluation of solid organs is limited due to lack of intravenous contrast use. Streak and beam hardening artifact from arms down positioning further limits assessment. Lower Chest: No acute findings. Liver: Unremarkable. Gallbladder and Biliary Tree: Gallbladder is collapsed or surgically absent. Pancreas: Unremarkable. Spleen: Unremarkable. Adrenal Glands: Unremarkable. Kidneys/Ureters: Right percutaneous nephrostomy tube appears appropriately positioned, with trace adjacent gas compatible with catheter usage. No hydronephrosis. Punctate stones in the left collecting system. Bladder: Grossly unremarkable for degree of distention. Pelvic Organs: Unremarkable Bowel: Normal caliber without wall thickening. No evidence of appendicitis. Vasculature: Unremarkable. Lymphadenopathy: No obvious adenopathy. Peritoneum: No ascites, free air, or fluid collection. Abdominal Wall: No significant hernia. Musculoskeletal: No acute abnormality. Degenerative change of the spine. Degenerative L5-S1 spondylosis. IMPRESSION: 1. Adequately positioned right percutaneous nephrostomy. No hydronephrosis. 2. Punctate left nephroliths. Radiation optimization: All CT scans at this facility use at least one of these dose optimization techniques: automated exposure control mA and/or kV adjustment per patient size (includes targeted exams where dose is matched to clinical indication) or iterative reconstruction. Labs Test 10/09/25 22:37 Range/Units White Blood Count 7.7 4.4-10.8 10^3/uL Red Blood Count 4.48 4.0-5.20 10^6/uL Hemoglobin 13.6 12.2-16.2 g/dL Hematocrit 40.4 36.0-46.0 % Mean Corpuscular Volume 90.2 80.0-100.0 fL Mean Corpuscular Hemoglobin 30.3 28.0-32.0 pg Mean Corpuscular Hemoglobin Concent 33.6 32.0-36.0 g/dL Red Cell Distribution Width 13.9 11.8-14.3 % Platelet Count 319 140-450 10^3/uL Mean Platelet Volume 7.8 6.9-10.8 fL Neutrophils (%) (Auto) 50.0 37.0-80.0 % Lymphocytes (%) (Auto) 39.5 10.0-50.0 % Monocytes (%) (Auto) 6.6 0.0-12.0 % Eosinophils (%) (Auto) 2.9 0.0-7.0 % Basophils (%) (Auto) 1.0 0.0-2.0 % Neutrophils # (Auto) 3.8 1.6-8.6 10 ^3/uL Lymphocytes # (Auto) 3.0 0.4-5.4 10 ^3/uL Monocytes # (Auto) 0.5 0-1.3 10 ^3/uL Eosinophils # (Auto) 0.2 0-0.8 10 ^3/uL Basophils # (Auto) 0.1 0-0.2 10 ^3/uL Nucleated Red Blood Cells 0.1 % Sodium Level 143 136-145 mmol/L Potassium Level 4.2 3.5-5.1 mmol/L Chloride Level 110 H 98-107 mmol/L Carbon Dioxide Level 26 20-31 mmol/L Anion Gap 7 5-15 Blood Urea Nitrogen 10 9-23 mg/dL Creatinine 0.77 0.550-1.02 mg/dL Glomerular Filtration Rate Calc 90 >90 mL/min BUN/Creatinine Ratio 13.0 10.0-20.0 Serum Glucose 82 74-106 mg/dL Calcium Level 9.3 8.7-10.4 mg/dL SEPSIS Sepsis Screen Date sepsis recognized/suspect: Oct 09, 2025 Time Sepsis recognized/suspect: 2199 Recent Procedure: No On Antibiotic Therapy: No Respiratory Rate >20: No Heart Rate >90: No Temp<36 C (96.8 F) or >38.3 C: No SBP <90 or MAP <65 mmHG: No New Acute Mental Status Change: No Is the patient on CPAP, BIPAP,: No Physician Orders Saline Lock (10/09/25 22:30) Notify Md If Abnormal Vs (10/09/25 22:30) Vital Signs Q2H (10/09/25 22:30) Urinalysis (10/09/25 22:30) Ct Ab Pel Wo Con-No Oral Or Iv (10/09/25 22:30) Urinalysis (10/10/25 04:30) * Urology Consult (10/10/25 04:30) Regular Diet (10/10/25 Breakfast) Admit (10/10/25 04:30) Hydrocodone-Acet 5/325mg Tab ([place] 5/32 (10/10/25 04:30) Vital Signs Date Time Temp Pulse Resp B/P (MAP) Pulse Ox O2 Delivery O2 Flow Rate FiO2 10/10/25 03:19 97.5 74 18 113/81 (92) 98 97.5 10/09/25 21:57 98.5 86 16 114/84 86 98.5 Laboratory Tests Test 10/09/25 22:37 White Blood Count 7.7 10^3/uL (4.4-10.8) Assessment/Plan Assessment/Plan Assessment Obstructive uropathy Nephrostomy tube evaluation Plan Admit the patient to [facility] to the hospitalist Urology consultation Pain management UA pending Continue treatment per orders. Plan discussed with: Patient My Orders Orders - TEENA GONZALEZ Procedure Category Date Status Time Urinalysis LAB 10/10/25 Verified 04:30 * Urology Consult CONS 10/10/25 Verified 04:30 Regular Diet DIET 10/10/25 Verified Breakfast Admit ADMIT 10/10/25 Verified 04:30 Hydrocodone-Acet PHA 10/10/25 Verified 5/325mg Tab ([place] 04:30 Date of Service: Oct 10, 2025 Billing Provider: TEENA GONZALEZ Common Visit Codes: [id number] INP/OBS CARE (MOD) TEENA GONZALEZ Oct 10, 2025 04:38
[2025-10-10 09:00] VITALS: BP 115/64; PULSE 73; RESP 17; TEMP 98; O2SAT 100
[2025-10-10 12:53] VITALS: BP 122/77; PULSE 73; RESP 16; TEMP 98; O2SAT 99
--- NOTE | 2025-10-10 14:13 | DVH ---
INDICATION: rule out pyleonephritis TECHNIQUE: Multiple real-time sonographic images of the abdomen were obtained. COMPARISON: US KIDNEY on DOS: 06/21/25, US KIDNEY on DOS: 06/20/25 FINDINGS: The liver is homogenous in echogenicity. The liver measures INDICATION: rule out pyleonephritis TECHNIQUE: Multiple real-time sonographic images of the kidneys and bladder were obtained. COMPARISON: US KIDNEY on DOS: 06/21/25, US KIDNEY on DOS: 06/20/25 FINDINGS: The right kidney measures 8.7 cm in length, which is normal in size. There is normal echogenicity of the right kidney. No hydronephrosis. There is a 0.9 x 0.6 x 0.8 cm anechoic cortical lesion on the right consistent with a cyst. Possible right-sided nephrostomy tube correlate clinically. The left kidney measures 10 cm in length, which is normal in size. There is normal echogenicity of the left kidney. No hydronephrosis. There is a 1.3 x 1.2 x 0.6 cm echogenic focus in the left kidney with no hydronephrosis. No large intraluminal masses are seen in the bladder. Prior to voiding the bladder volume measures volume 31.5 cc. Bilateral ureteral jets visualized in the bladder. IMPRESSION: 1. Right kidney measures 8.7 cm. Left kidney measures 10 cm. 2. Questionable right-sided nephrostomy tube correlate clinically. 3. Small cyst right kidney. 4. Small nonobstructing calculus left kidney.
--- NOTE | 2025-10-10 15:49 | DVHPNRES ---
Progress Note Date Seen: Oct 10, 2025 Resident Creating Document: IRIS RIVERA RESIDENT Medical Necessity Reason Pt with a Central, PICC or Fol: No Subjective Review of Systems Patient is a 55-year-old female with past medical history of renal stones came to the ED with right-sided flank pain since 3 weeks. Patient had a right nephrostomy tube inserted 6 months ago secondary to nephrolithiasis. She states that the tube has not been changed since 6 months. Patient denies any fever, chills, nausea, vomiting, headaches, dizziness. Patient denies any dysuria,urgency, frequency. Patient did have hematuria 3 weeks ago. Patient was admitted in May for similar complaints and was seen by Urology at the time. Patient did not follow-up with Urology outpatient post discharge. Patient had reduced urine output into the leg bag. Past surgical history: Nephrostomy tube placed Family history: Noncontributory Social history: smoked 1 pack of cigarette per day, drink alcohol drugs occasionally, used amphetamine. Lives with: Family 10/10/2025: patient seen at bedside. Today patient complained of right- sided flank pain which was 8/10 in intensity. Patient wants nephrostomy tube to be replaced. Urology following. Objective vital signs Vital Sign Date Time Temp Pulse Resp B/P (MAP) Pulse Ox O2 Delivery O2 Flow Rate FiO2 10/10/25 12:53 98.0 73 16 122/77 (92) 99 98.0 10/10/25 10:45 Room Air* 0 21 medications Current Medications Medications Dose Ordered Sig/Shamar Route Start Time Stop Time Status Last Admin Dose Admin Acetaminophen/ Hydrocodone Bitart 1 tab Q4HP PRN PO 10/10/25 04:30 Temazepam 15 mg QHSP PRN PO 10/10/25 04:30 Ondansetron HCl 4 mg Q4HP PRN IV 10/10/25 04:30 Acetaminophen 650 mg Q6HP PRN PO 10/10/25 04:30 Ceftriaxone Sodium 50 ml @ 100 mls/hr DAILY@09 IV 10/11/25 09:00 Examination General: Patient alert and oriented in person, place and time. Patient following commands. HEENT: Normocephalic, atraumatic, moist mucous membranes Respiratory/pulmonary: Clear lungs bilaterally, vesicular murmurs present in almost all lung rodriguez, no associated crackles or wheezes. Cardiovascular: Normal heart sounds S1 and S2 with no associated murmurs Abdomen: Mild costovertebral angle tenderness. right nephrostomy tube with leg bag Extremities: There is no peripheral edema present at the lower extremities. Peripheral Pulses: 3+ Radial (R). 3+ Radial (L). 3+ Dorsalis pedis (R). 3+ Dorsalis pedis(L) Skin: No rashes or pruritus, there is no sacral edema present at this time. Neurological: Intact cranial nerves with no focal neurologic deficits laboratory and microbiology Laboratory Tests 10/09/25 22:37 Test 10/09/25 22:37 Range/Units Serum Glucose 82 74-106 mg/dL Problem List/Assessment/Plan Problem List/Assessment/Plan Nephrolithiasis Acute Obstructive uropathy Small cyst right S/P right side nephrostomy tube placement ? Pyelonephritis kidney. - urinalysis - urine culture -IV ceftriaxone - CT abdomen showed Right kidney measures 8.7 cm. Left kidney measures 10 cm. Questionable right-sided nephrostomy tube correlate clinically. Small cyst right kidney. Small nonobstructing calculus left kidney. - kidney ultrasound Showed Adequately positioned right percutaneous nephrostomy. No hydronephrosis. Punctate left nephroliths. Insomnia - temazepam llicit drug use, Nicotine use disorder Patient counseled on cessation of smoking drug use for greater than 18 minutes PPI prophylaxis: Not indicated DVT prophylaxis: Ambulatory Goals of care addressed with the patient for more than 27 minutes: Full code status Case discussed with Dr. Stearns , patient and nurse Plan discussed with: Patient My Orders My Orders Orders - IRIS RIVERA Procedure Category Date Status Time Urine Bacterial [place] 10/10/25 Transmitted Culture 13:09 Kidney US 10/10/25 Resulted 13:09 Ceftriaxone 1gm/50ml PHA 10/11/25 In Process (Rocephin) 09:00 PTPTT LAB 10/10/25 Logged 15:30 Drug Screen LAB 10/10/25 Logged 15:30 Urinalysis LAB 10/10/25 Logged 15:30 Hepatic Panel LAB 10/10/25 Logged 15:30 Date of Service: Oct 10, 2025 Billing Provider: DEANGELO STEARNS MD Common Visit Codes: NOT BILLABLE IRIS RIVERA Oct 10, 2025 15:49 DEANGELO STEARNS MD Oct 10, 2025 19:14
[2025-10-10 16:30] VITALS: BP 111/73; PULSE 86; RESP 17; TEMP 98.1; O2SAT 97
[2025-10-10 16:44] LABS: INR 0.96 (0.9-1.15); Partial Thromboplastin Time 25.5 SEC (24.5-34.5); Prothrombin Time 10.2 sec (9.3-11.8)
[2025-10-10 16:46] LABS: Alanine Aminotransferase 24 U/L (7-40); Albumin 4.1 g/dL (3.2-4.8); Alkaline Phosphatase 94 U/L (46-116); Bilirubin, Total 0.4 mg/dL (0.2-1.0); Total Protein 6.5 g/dL (5.7-8.2)
[2025-10-10 17:02] LABS: Bilirubin, Direct < 0.1 mg/dL (<0.3)
[2025-10-10 21:00] VITALS: BP 97/54; PULSE 80; RESP 20; TEMP 98.1; O2SAT 95
[2025-10-10 23:08] VITALS: BP 99/66; PULSE 77; RESP 18; TEMP 98; O2SAT 95
[2025-10-11] VITALS (8 sets, daily range): BP systolic 96–111; BP diastolic 61–73; PULSE 65–110; RESP 16–18; TEMP 96.9–98.3; O2SAT 92–99
[2025-10-11 06:01] LABS: Hematocrit 38.9 % (36.0-46.0); Hemoglobin 13.5 g/dL (12.2-16.2); Mean Corpuscular Hemoglobin 30.6 pg (28.0-32.0); Mean Corpuscular Volume 88.5 fL (80.0-100.0); Nucleated Red Blood Cells % 0.1 %
[2025-10-11 06:05] LABS: Potassium 4.0 mmol/L (3.5-5.1); Sodium 142 mmol/L (136-145)
[2025-10-11 06:06] LABS: Chloride 110 mmol/L (98-107)
[2025-10-11 06:07] LABS: Calcium 8.9 mg/dL (8.7-10.4)
[2025-10-11 06:11] LABS: BUN/Creatinine Ratio 27.6 (10.0-20.0); Blood Urea Nitrogen 16 mg/dL (9-23); Glucose 87 mg/dL (74-106)
[2025-10-11 06:42] LABS: Anion Gap 8 (5-15); Carbon Dioxide 24 mmol/L (20-31)
[2025-10-11 07:34] LABS: Urine Protein, UAD 1+ (Negative)
[2025-10-11 07:41] LABS: Amphetamine Screen, Urine Pos (NEGATIVE); Barbiturate Scree,Urine Neg (NEGATIVE); Benzodiazephine Screen, Urine Neg (NEGATIVE); Cannabinoid Screen, Urine Neg (NEGATIVE); Cocaine Screen, Urine Neg (NEGATIVE); Opiate Scree,Urine Neg (NEGATIVE); Phencyclidine Screen, Urine Neg (NEGATIVE)
--- NOTE | 2025-10-11 11:39 | DVHINCON2 ---
Date of service: Oct 11, 2025 Referring Physician Hospitalist Reason for Consultation Right PNT evaluation 8 mm right distal ureteral stone, impacted and persistent History of Present Illness 55-year-old female underwent evaluation on 06/21/25 for moderate right hydronephrosis due to 8 mm impacted right distal ureteral stone. She was placed a right PNT per IR service. Patient reports having her right nephrostomy tube inserted "six months ago" (06/21/25) secondary to "kidney stone". She states tube has not been changed since then. She also complains of mild right flank pain. No fever or chills. No nausea or vomiting. Of note, patient was admitted for months ago with similar complaints and was seen by Urology then. During discharge patient was advised to follow up with Urology in three weeks po st discharge. Patient has not been able to see a urologist since then. CT Scan shows persistent 8 mm right distal ureteal impacted stone. She will need right PNT exchange and subsequent outpatient lithotripsy TBA Past Medical History Kidney stones Past Surgical History Nephrostomy tube- right Family History: FH: heart disease G8 MOTHER Allergies: Coded Allergies: Prochlorperazine (Unverified Allergy, Unknown, 07/07/24) Current Medications Current Medications Medications (Trade) Dose Ordered Sig/Shamar Route PRN Reason Start Time Stop Time Status Last Admin Ceftriaxone Sodium 50 ml @ 100 mls/hr DAILY@09 IV 10/11/25 09:00 10/11/25 09:34 Review of Systems Review of systems are currently negative otherwise addressed in HPI. Allergies: Coded Allergies: Prochlorperazine (Unverified Allergy, Unknown, 07/07/24) Vital Signs Vital Signs Date Time Temp Pulse Resp B/P (MAP) Pulse Ox O2 Delivery O2 Flow Rate FiO2 10/11/25 09:13 97.7 82 16 96/61 (73) 95 97.7 10/10/25 23:10 Room Air* 0 21 Physical Exam Vital Signs Date Time Temp Pulse Resp B/P (MAP) Pulse Ox O2 Delivery O2 Flow Rate FiO2 10/10/25 03:19 97.5 74 18 113/81 (92) 98 97.5 Exam Gen: 55-year-old female in no apparent distress Skin: Warm, dry, normal color and texture, no rash. HEENT: Normocephalic atraumatic, mucous membranes moist and pink. Neck: Cervical and supraclavicular nodes normal without enlargement, trachea is midline, thyroid gland is normal without masses. Pulmonary: Clear to auscultation and percussion bilaterally. Cardiac: Regular rate and rhythm. No murmur Abdomen: Soft, nontender, nondistended, bowel sounds present all 4 quadrants, no guarding, no rigidity, no organomegaly, right flank nephrostomy tube. Extremities: No cyanosis, clubbing, no edema Neuro: Cranial nerves II through XII grossly intact, normal affect and speech, no focal motor deficits. Labs/Diagnostic Data Labs Test 10/11/25 05:14 10/11/25 02:20 10/10/25 16:08 Range/Units White Blood Count 7.2 4.4-10.8 10^3/uL Red Blood Count 4.40 4.0-5.20 10^6/uL Hemoglobin 13.5 12.2-16.2 g/dL Hematocrit 38.9 36.0-46.0 % Mean Corpuscular Volume 88.5 80.0-100.0 fL Mean Corpuscular Hemoglobin 30.6 28.0-32.0 pg Mean Corpuscular Hemoglobin Concent 34.6 32.0-36.0 g/dL Red Cell Distribution Width 13.7 11.8-14.3 % Platelet Count 304 140-450 10^3/uL Mean Platelet Volume 7.7 6.9-10.8 fL Neutrophils (%) (Auto) 55.3 37.0-80.0 % Lymphocytes (%) (Auto) 34.2 10.0-50.0 % Monocytes (%) (Auto) 6.4 0.0-12.0 % Eosinophils (%) (Auto) 3.2 0.0-7.0 % Basophils (%) (Auto) 0.9 0.0-2.0 % Neutrophils # (Auto) 4.0 1.6-8.6 10 ^3/uL Lymphocytes # (Auto) 2.5 0.4-5.4 10 ^3/uL Monocytes # (Auto) 0.5 0-1.3 10 ^3/uL Eosinophils # (Auto) 0.2 0-0.8 10 ^3/uL Basophils # (Auto) 0.1 0-0.2 10 ^3/uL Nucleated Red Blood Cells 0.1 % Sodium Level 142 136-145 mmol/L Potassium Level 4.0 3.5-5.1 mmol/L Chloride Level 110 H 98-107 mmol/L Carbon Dioxide Level 24 20-31 mmol/L Anion Gap 8 5-15 Blood Urea Nitrogen 16 9-23 mg/dL Creatinine 0.58 0.550-1.02 mg/dL Glomerular Filtration Rate Calc 106 >90 mL/min BUN/Creatinine Ratio 27.6 H 10.0-20.0 Serum Glucose 87 74-106 mg/dL Calcium Level 8.9 8.7-10.4 mg/dL Urine Color Colorless Yellow Urine Clarity Turbid H Clear Urine pH 6.5 5.0-9.0 Urine Specific [place] 1.024 1.001-1.035 Urine Protein 1+ H Negative Urine Ketones Negative Negative Urine Blood 2+ H Negative /uL Urine Nitrite Negative Negative Urine Bilirubin Negative Negative Urine Urobilinogen Normal Negative mg/dL Urine Leukocyte Esterase 2+ Negative /uL Urine RBC 118 0 - 4 /hpf Urine Microscopic WBC 45 H 0-5 /HPF Urine Squamous Epithelial Cells Many <5 /hpf Urine Bacteria None seen None Seen /hpf Urine Mucus Few None Seen Urine Glucose Normal Normal mg/dL Urine Opiates Screen Neg NEGATIVE Urine Fentanyl Screen Neg NEGATIVE Urine Barbiturates Screen Neg NEGATIVE Urine Phencyclidine Screen Neg NEGATIVE Urine Amphetamines Screen Pos NEGATIVE Urine Benzodiazepines Screen Neg NEGATIVE Urine Cocaine Screen Neg NEGATIVE Urine Cannabinoids Screen Neg NEGATIVE Prothrombin Time 10.2 9.3-11.8 sec Prothrombin Time INR 0.96 0.9-1.15 Activated Partial Thromboplast Time 25.5 24.5-34.5 SEC Total Bilirubin 0.4 0.2-1.0 mg/dL Direct Bilirubin < 0.1 <0.3 mg/dL Aspartate Amino Transferase (AST) 22 13-40 U/L Alanine Aminotransferase (ALT) 24 7-40 U/L Alkaline Phosphatase 94 46-116 U/L Total Protein 6.5 5.7-8.2 g/dL Albumin 4.1 3.2-4.8 g/dL Assessment Right PNT, in situ Right distal ureteral stone, 8 mm Plan/Recommendation Exchange right PNT Outpatient [facility] TBA Plan discussed with: Patient, Other ZACK PATTEN MD Oct 11, 2025 11:39
--- NOTE | 2025-10-11 17:54 | DVHPNRES ---
Progress Note Date Seen: Oct 11, 2025 Resident Creating Document: IRIS RIVERA RESIDENT Medical Necessity Reason Pt with a Central, PICC or Fol: No Subjective Review of Systems Patient is a 55-year-old female with past medical history of renal stones came to the ED with right-sided flank pain since 3 weeks. Patient had a right nephrostomy tube inserted 6 months ago secondary to nephrolithiasis. She states that the tube has not been changed since 6 months. Patient denies any fever, chills, nausea, vomiting, headaches, dizziness. Patient denies any dysuria,urgency, frequency. Patient did have hematuria 3 weeks ago. Patient was admitted in May for similar complaints and was seen by Urology at the time. Patient did not follow-up with Urology outpatient post discharge. Patient had reduced urine output into the leg bag. Past surgical history: Nephrostomy tube placed Family history: Noncontributory Social history: smoked 1 pack of cigarette per day, drink alcohol drugs occasionally, used amphetamine. Lives with: Family 10/10/2025: patient seen at bedside. Today patient complained of right- sided flank pain which was 8/10 in intensity. Patient wants nephrostomy tube to be replaced. Urology following. 10/11/2025: Patient seen at bedside. Patient today complained of 5/10 pain which is bearable. Patient is to have nephrostomy tube replaced and urology recommended Outpatient [facility] TBA. Objective vital signs Vital Sign Date Time Temp Pulse Resp B/P (MAP) Pulse Ox O2 Delivery O2 Flow Rate FiO2 10/11/25 16:43 96.9 110 18 101/72 (82) 99 96.9 10/11/25 08:00 Room Air* 0 21 Total Intake and Output 10/10/25 10/10/25 10/11/25 15:00 23:00 07:00 Intake Total 50 ml 800 ml 0 ml Balance 50 ml 800 ml 0 ml medications Current Medications Medications Dose Ordered Sig/Shamar Route Start Time Stop Time Status Last Admin Dose Admin Acetaminophen/ Hydrocodone Bitart 1 tab Q4HP PRN PO 10/10/25 04:30 Temazepam 15 mg QHSP PRN PO 10/10/25 04:30 Ondansetron HCl 4 mg Q4HP PRN IV 10/10/25 04:30 Acetaminophen 650 mg Q6HP PRN PO 10/10/25 04:30 Ceftriaxone Sodium 50 ml @ 100 mls/hr DAILY@09 IV 10/11/25 09:00 10/11/25 09:34 100 MLS/HR Examination General: Patient alert and oriented in person, place and time. Patient following commands. HEENT: Normocephalic, atraumatic, moist mucous membranes Respiratory/pulmonary: Clear lungs bilaterally, vesicular murmurs present in almost all lung rodriguez, no associated crackles or wheezes. Cardiovascular: Normal heart sounds S1 and S2 with no associated murmurs Abdomen: Mild costovertebral angle tenderness. right nephrostomy tube with leg bag Extremities: There is no peripheral edema present at the lower extremities. Peripheral Pulses: 3+ Radial (R). 3+ Radial (L). 3+ Dorsalis pedis (R). 3+ Dorsalis pedis(L) Skin: No rashes or pruritus, there is no sacral edema present at this time. Neurological: Intact cranial nerves with no focal neurologic deficits laboratory and microbiology Laboratory Tests 10/11/25 05:14 Test 10/11/25 05:14 Range/Units Serum Glucose 87 74-106 mg/dL Problem List/Assessment/Plan Problem List/Assessment/Plan Nephrolithiasis Acute Obstructive uropathy Acute complicated UTI Small cyst right S/P right side nephrostomy tube placement ? Pyelonephritis - urinalysis shows positive for UTI - urine culture -IV ceftriaxone - CT abdomen showed Right kidney measures 8.7 cm. Left kidney measures 10 cm. Questionable right-sided nephrostomy tube correlate clinically. Small cyst right kidney. Small nonobstructing calculus left kidney. - kidney ultrasound Showed Adequately positioned right percutaneous nephrostomy. No hydronephrosis. Punctate left nephroliths. - urology recommended replacement of right nephrostomy tube and Outpatient [facility] TBA. Insomnia - temazepam llicit drug use, Nicotine use disorder UDS positive for amphetamine Patient counseled on cessation of smoking drug use for greater than 18 minutes PPI prophylaxis: Not indicated DVT prophylaxis: Ambulatory Goals of care addressed with the patient for more than 27 minutes: Full code status Case discussed with Dr. Stearns , patient and nurse Plan discussed with: Patient Date of Service: Oct 11, 2025 Billing Provider: DEANGELO STEARNS MD Common Visit Codes: [id number] INP/OBS CARE(HIGH) IRIS RIVERA RESIDENT Oct 11, 2025 17:54 DEANGELO STEARNS MD Oct 11, 2025 20:49
[2025-10-12] VITALS (10 sets, daily range): BP systolic 94–119; BP diastolic 61–79; PULSE 62–88; RESP 14–18; TEMP 97.7–98.3; O2SAT 94–98
[2025-10-12 05:30] LABS: Hematocrit 39.6 % (36.0-46.0); Hemoglobin 13.7 g/dL (12.2-16.2); Mean Corpuscular Hemoglobin 30.4 pg (28.0-32.0); Mean Corpuscular Volume 87.9 fL (80.0-100.0); Nucleated Red Blood Cells % 0.1 %
[2025-10-12 05:39] LABS: Anion Gap 8 (5-15); Carbon Dioxide 24 mmol/L (20-31); Potassium 3.9 mmol/L (3.5-5.1); Sodium 142 mmol/L (136-145)
[2025-10-12 05:40] LABS: Calcium 9.0 mg/dL (8.7-10.4)
[2025-10-12 05:45] LABS: BUN/Creatinine Ratio 30.9 (10.0-20.0); Blood Urea Nitrogen 17 mg/dL (9-23); Glucose 89 mg/dL (74-106)
[2025-10-12 05:47] LABS: Chloride 110 mmol/L (98-107)
[2025-10-12] MEDS: fentaNYL CITRATE 100 MCG/2 ML VL ONE (12:42)
[2025-10-12] MEDS: LIDOCAINE 2%HCL (LOCAL ANESTH.) INJ 20ML MDV ONE (12:42)
[2025-10-12] MEDS: MIDAZOLAM HCL 2MG/2ML 2ml VIAL (1mg/ml) ONE (12:42)
--- NOTE | 2025-10-12 15:50 | DVHPNRES ---
Progress Note Date Seen: Oct 12, 2025 Resident Creating Document: IRIS RIVERA RESIDENT Medical Necessity Reason Pt with a Central, PICC or Fol: No Subjective Review of Systems Patient is a 55-year-old female with past medical history of renal stones came to the ED with right-sided flank pain since 3 weeks. Patient had a right nephrostomy tube inserted 6 months ago secondary to nephrolithiasis. She states that the tube has not been changed since 6 months. Patient denies any fever, chills, nausea, vomiting, headaches, dizziness. Patient denies any dysuria,urgency, frequency. Patient did have hematuria 3 weeks ago. Patient was admitted in May for similar complaints and was seen by Urology at the time. Patient did not follow-up with Urology outpatient post discharge. Patient had reduced urine output into the leg bag. Past surgical history: Nephrostomy tube placed Family history: Noncontributory Social history: smoked 1 pack of cigarette per day, drink alcohol drugs occasionally, used amphetamine. Lives with: Family 10/10/2025: patient seen at bedside. Today patient complained of right- sided flank pain which was 8/10 in intensity. Patient wants nephrostomy tube to be replaced. Urology following. 10/11/2025: Patient seen at bedside. Patient today complained of 5/10 pain which is bearable. Patient is to have nephrostomy tube replaced and urology recommended Outpatient [facility]. 10/12/2025: Patient seen at bedside. Patient went to replacement of right nephrostomy tube. Patient states the pain is tolerable, nephron tube is draining clear yellow urine. Urology following. Objective vital signs Vital Sign Date Time Temp Pulse Resp B/P (MAP) Pulse Ox O2 Delivery O2 Flow Rate FiO2 10/12/25 14:05 80 15 95/67 (76) 97 10/12/25 12:00 98.0 98.0 10/11/25 20:00 Room Air* 0 21 Total Intake and Output 10/11/25 10/11/25 10/12/25 15:00 23:00 07:00 Intake Total 700 ml 300 ml Balance 700 ml 300 ml medications Current Medications Medications Dose Ordered Sig/Shamar Route Start Time Stop Time Status Last Admin Dose Admin Acetaminophen/ Hydrocodone Bitart 1 tab Q4HP PRN PO 10/10/25 04:30 Temazepam 15 mg QHSP PRN PO 10/10/25 04:30 Ondansetron HCl 4 mg Q4HP PRN IV 10/10/25 04:30 Acetaminophen 650 mg Q6HP PRN PO 10/10/25 04:30 Ceftriaxone Sodium 50 ml @ 100 mls/hr DAILY@09 IV 10/11/25 09:00 10/11/25 09:34 100 MLS/HR Examination General: Patient alert and oriented in person, place and time. Patient following commands. HEENT: Normocephalic, atraumatic, moist mucous membranes Respiratory/pulmonary: Clear lungs bilaterally, vesicular murmurs present in almost all lung rodriguez, no associated crackles or wheezes. Cardiovascular: Normal heart sounds S1 and S2 with no associated murmurs Abdomen: Mild costovertebral angle tenderness. right nephrostomy tube with leg bag Extremities: There is no peripheral edema present at the lower extremities. Peripheral Pulses: 3+ Radial (R). 3+ Radial (L). 3+ Dorsalis pedis (R). 3+ Dorsalis pedis(L) Skin: No rashes or pruritus, there is no sacral edema present at this time. Neurological: Intact cranial nerves with no focal neurologic deficits laboratory and microbiology Laboratory Tests 10/12/25 04:58 Test 10/12/25 04:58 Range/Units Serum Glucose 89 74-106 mg/dL Microbiology Date/Time Source Procedure Growth Status 10/10/25 02:20 Voided Urine Urine Culture - Preliminary No growth Resulted Problem List/Assessment/Plan Problem List/Assessment/Plan Nephrolithiasis Acute Obstructive uropathy Acute complicated UTI Small cyst right S/P right side nephrostomy tube placement ? Pyelonephritis - urinalysis shows positive for UTI - urine culture -IV ceftriaxone - CT abdomen showed Right kidney measures 8.7 cm. Left kidney measures 10 cm. Questionable right-sided nephrostomy tube correlate clinically. Small cyst right kidney. Small nonobstructing calculus left kidney. - kidney ultrasound Showed Adequately positioned right percutaneous nephrostomy. No hydronephrosis. Punctate left nephroliths. - urology recommended replacement of right nephrostomy tube and Outpatient [facility]. Insomnia - temazepam llicit drug use, Nicotine use disorder UDS positive for amphetamine Patient counseled on cessation of smoking drug use for greater than 18 minutes PPI prophylaxis: Not indicated DVT prophylaxis: Ambulatory Goals of care addressed with the patient for more than 27 minutes: Full code status Case discussed with Dr. Stearns, RN Plan discussed with: Patient Date of Service: Oct 12, 2025 Billing Provider: DEANGELO STEARNS MD Common Visit Codes: 86518-UVO/OBS DISCH DAY >30min IRIS RIVERA RESIDENT Oct 12, 2025 15:50 DEANGELO STEARNS MD Oct 14, 2025 13:22
--- NOTE | 2025-10-12 16:54 | DVH ---
DATE: 09/2025 PROCEDURE: Right NEPHROSTOMY TUBE CHANGE HISTORY: NEPHROTUBE PLACEMENT DOCUMENTATION: Informed consent was obtained and a procedural time out was performed. SEDATION: Moderate sedation was utilized during the procedure. The patient received benzodiazepines and opioids, the dosing of which was documented in the patients permanent medical record. Pre-sedation history and evaluation revealed no contraindications to sedation. The patients level of consciousness and physiologic status was monitored continuously by the physician and nursing staff throughout the procedure. Total intra-service moderate sedation time was 30 minutes. FLUORO TIME: 0.3 minutes TECHNIQUE: The right nephrostomy tube and surrounding skin were prepped, draped, and anesthetized with 1% lidocaine. A surgical instrument technician radiograph was obtained. The right nephrostomy tube was injected with dilute contrast and fluoroscopic images were obtained. The existing right nephrostomy nephrostomy tube was cut and removed over a wire. A new right nephrostomy 8.5 [place] APD was then placed under fluoroscopy. The tube was injected with contrast and a spot radiograph obtained. The tube was then sutured in place and reconnected to gravity drainage. Sterile dressings were applied. FINDINGS: The existing nephrostomy tube was in good position and patent. The new tube was positioned in the renal pelvis. IMPRESSION: 1. SUCCESSFUL right NEPHROSTOMY TUBE EXCHANGE.
--- NOTE | 2025-10-13 13:40 | DVHDSRES ---
Discharge Summary Date of Admission Resident Creating Document: IRIS RIVERA Oct 10, 2025 at 04:30 Date of Discharge: Oct 13, 2025 Admitting Diagnosis Acute obstructive uropathy Labs/Diagnostic Data: Laboratory Results Test 10/12/25 04:58 10/11/25 02:20 10/10/25 16:08 White Blood Count 6.9 10^3/uL (4.4-10.8) Red Blood Count 4.50 10^6/uL (4.0-5.20) Hemoglobin 13.7 g/dL (12.2-16.2) Hematocrit 39.6 % (36.0-46.0) Mean Corpuscular Volume 87.9 fL (80.0-100.0) Mean Corpuscular Hemoglobin 30.4 pg (28.0-32.0) Mean Corpuscular Hemoglobin Concent 34.6 g/dL (32.0-36.0) Red Cell Distribution Width 14.0 % (11.8-14.3) Platelet Count 305 10^3/uL (140-450) Mean Platelet Volume 7.6 fL (6.9-10.8) Neutrophils (%) (Auto) 49.6 % (37.0-80.0) Lymphocytes (%) (Auto) 40.1 % (10.0-50.0) Monocytes (%) (Auto) 6.5 % (0.0-12.0) Eosinophils (%) (Auto) 3.0 % (0.0-7.0) Basophils (%) (Auto) 0.8 % (0.0-2.0) Neutrophils # (Auto) 3.4 10 ^3/uL (1.6-8.6) Lymphocytes # (Auto) 2.7 10 ^3/uL (0.4-5.4) Monocytes # (Auto) 0.4 10 ^3/uL (0-1.3) Eosinophils # (Auto) 0.2 10 ^3/uL (0-0.8) Basophils # (Auto) 0.1 10 ^3/uL (0-0.2) Nucleated Red Blood Cells 0.1 % Sodium Level 142 mmol/L (136-145) Potassium Level 3.9 mmol/L (3.5-5.1) Chloride Level 110 mmol/L (98-107) Carbon Dioxide Level 24 mmol/L (20-31) Anion Gap 8 (5-15) Blood Urea Nitrogen 17 mg/dL (9-23) Creatinine 0.55 mg/dL (0.550-1.02) Glomerular Filtration Rate Calc 108 mL/min (>90) BUN/Creatinine Ratio 30.9 (10.0-20.0) Serum Glucose 89 mg/dL (74-106) Calcium Level 9.0 mg/dL (8.7-10.4) Urine Color Colorless (Yellow) Urine Clarity Turbid (Clear) Urine pH 6.5 (5.0-9.0) Urine Specific [place] 1.024 (1.001-1.035) Urine Protein 1+ (Negative) Urine Ketones Negative (Negative) Urine Blood 2+ /uL (Negative) Urine Nitrite Negative (Negative) Urine Bilirubin Negative (Negative) Urine Urobilinogen Normal mg/dL (Negative) Urine Leukocyte Esterase 2+ /uL (Negative) Urine RBC 118 /hpf (0 - 4) Urine Microscopic WBC 45 /HPF (0-5) Urine Squamous Epithelial Cells Many /hpf (<5) Urine Bacteria None seen /hpf (None Seen) Urine Mucus Few (None Seen) Urine Glucose Normal mg/dL (Normal) Urine Opiates Screen Neg (NEGATIVE) Urine Fentanyl Screen Neg (NEGATIVE) Urine Barbiturates Screen Neg (NEGATIVE) Urine Phencyclidine Screen Neg (NEGATIVE) Urine Amphetamines Screen Pos (NEGATIVE) Urine Benzodiazepines Screen Neg (NEGATIVE) Urine Cocaine Screen Neg (NEGATIVE) Urine Cannabinoids Screen Neg (NEGATIVE) Prothrombin Time 10.2 sec (9.3-11.8) Prothrombin Time INR 0.96 (0.9-1.15) Activated Partial Thromboplast Time 25.5 SEC (24.5-34.5) Total Bilirubin 0.4 mg/dL (0.2-1.0) Direct Bilirubin < 0.1 mg/dL (<0.3) Aspartate Amino Transferase (AST) 22 U/L (13-40) Alanine Aminotransferase (ALT) 24 U/L (7-40) Alkaline Phosphatase 94 U/L (46-116) Total Protein 6.5 g/dL (5.7-8.2) Albumin 4.1 g/dL (3.2-4.8) Other Laboratory Tests 10/12/25 04:58 Brief Hx & Hospital Course: Patient is a 55-year-old female with past medical history of renal stones came to the ED with right-sided flank pain since 3 weeks. Patient had a right nephrostomy tube inserted 6 months ago secondary to nephrolithiasis. She states that the tube has not been changed since 6 months. Patient denies any fever, chills, nausea, vomiting, headaches, dizziness. Patient denies any dysuria,urgency, frequency. Patient did have hematuria 3 weeks ago. Patient was admitted in May for similar complaints and was seen by Urology at the time. Patient did not follow-up with Urology outpatient post discharge. Patient had reduced urine output into the leg bag. Past surgical history: Nephrostomy tube placed Family history: Noncontributory Social history: smoked 1 pack of cigarette per day, drink alcohol drugs occasionally, used amphetamine. Lives with: Family Brief hospital course: Patient came to the hospital with right-sided flank pain. Patient her nephrolithiasis, acute obstructive uropathy, acute complicated UTI, small renal cysts, patient was started on IV ceftriaxone, urine culture collected, urinalysis showed positive for UTI, CT scan showed Right kidney measures 8.7 cm. Left kidney measures 10 cm. Questionable right-sided nephrostomy tube correlate clinically. Small cyst right kidney. Small nonobstructing calculus left kidney. kidney ultrasound Showed Adequately positioned right percutaneous nephrostomy. No hydronephrosis. Punctate left nephroliths urology recommended replacement of right nephrostomy tube and Outpatient [facility]. IR was consulted for right nephrostomy tube replacement. Successfully replaced nephrostomy tube. Patient has illicit drug use, nicotine use disorder, UDS showed positive for amphetamine. Patient wanted to leave AMA. patient was advised to stay and get treatment but her sign the AMA form and left. Patient was advised to return to ED for any worsening of symptoms. Operations or Procedures ORDERING PHYSICIAN: DELFINO RAMOS MD PROCEDURE(s): ABPL - CT AB PEL WO CON-NO ORAL OR IV REASON: Right flank pain, urostomy in place ORDER NUMBER(s): [id number], ACCESSION NUMBER(s): [id number] Exam: CT CT AB PEL WO CON-NO ORAL OR IV History: Right flank pain, urostomy in place Comparison Study: CT CT AB PEL WO CON-NO ORAL OR IV on DOS: 06/20/25, CT CT AB PEL WO CON-NO ORAL OR IV on DOS: 06/28/24, CT ABD PELVIS WO CONTRAST on DOS: 06/08/20 Technique: Multidetector spiral CT of the abdomen was performed from lung bases to pubic symphysis. Imaging was performed without IV contrast. Axial, coronal and sagittal multiplanar reformats were obtained from the axial data set by the technologist. Radiation Dose : 1. Abdomen/Pelvis: CTDIvol 10.63 mGy, DLP 567.91 mGy*cm. Findings: Evaluation of solid organs is limited due to lack of intravenous contrast use. Streak and beam hardening artifact from arms down positioning further limits assessment. Lower Chest: No acute findings. Liver: Unremarkable. Gallbladder and Biliary Tree: Gallbladder is collapsed or surgically absent. Pancreas: Unremarkable. Spleen: Unremarkable. Adrenal Glands: Unremarkable. Kidneys/Ureters: Right percutaneous nephrostomy tube appears appropriately positioned, with trace adjacent gas compatible with catheter usage. No hydronephrosis. Punctate stones in the left collecting system. Bladder: Grossly unremarkable for degree of distention. Pelvic Organs: Unremarkable Bowel: Normal caliber without wall thickening. No evidence of appendicitis. Vasculature: Unremarkable. Lymphadenopathy: No obvious adenopathy. Peritoneum: No ascites, free air, or fluid collection. Abdominal Wall: No significant hernia. Musculoskeletal: No acute abnormality. Degenerative change of the spine. Degenerative L5-S1 spondylosis. IMPRESSION: 1. Adequately positioned right percutaneous nephrostomy. No hydronephrosis. 2. Punctate left nephroliths. Radiation optimization: All CT scans at this facility use at least one of these dose optimization techniques: automated exposure control mA and/or kV adjustment per patient size (includes targeted exams where dose is matched to clinical indication) or iterative reconstruction. ATED BY: HODAN MONREAL MD DICTATED DATE/TIME: 10/10/25 0039 ORDERING PHYSICIAN: IRIS RIVERA RESIDENT PROCEDURE(s): KIDUS - KIDNEY REASON: rule out pyleonephritis ORDER NUMBER(s): [id number], ACCESSION NUMBER(s): [id number] INDICATION: rule out pyleonephritis TECHNIQUE: Multiple real-time sonographic images of the abdomen were obtained. COMPARISON: US KIDNEY on DOS: 06/21/25, US KIDNEY on DOS: 06/20/25 FINDINGS: The liver is homogenous in echogenicity. The liver measures INDICATION: rule out pyleonephritis TECHNIQUE: Multiple real-time sonographic images of the kidneys and bladder were obtained. COMPARISON: US KIDNEY on DOS: 06/21/25, US KIDNEY on DOS: 06/20/25 FINDINGS: The right kidney measures 8.7 cm in length, which is normal in size. There is normal echogenicity of the right kidney. No hydronephrosis. There is a 0.9 x 0.6 x 0.8 cm anechoic cortical lesion on the right consistent with a cyst. Possible right-sided nephrostomy tube correlate clinically. The left kidney measures 10 cm in length, which is normal in size. There is normal echogenicity of the left kidney. No hydronephrosis. There is a 1.3 x 1.2 x 0.6 cm echogenic focus in the left kidney with no hydronephrosis. No large intraluminal masses are seen in the bladder. Prior to voiding the bladder volume measures volume 31.5 cc. Bilateral ureteral jets visualized in the bladder. IMPRESSION: 1. Right kidney measures 8.7 cm. Left kidney measures 10 cm. 2. Questionable right-sided nephrostomy tube correlate clinically. 3. Small cyst right kidney. 4. Small nonobstructing calculus left kidney. ATED BY: EIRC RIDDLE Jr., DO DICTATED DATE/TIME: 10/10/25 1410 ORDERING PHYSICIAN: DESTIN FLORES MD PROCEDURE(s): PERNEPH - PERCUTANEOUS NEPHROSTOMY REASON: NEPHROTUBE PLACEMENT ORDER NUMBER(s): [id number], ACCESSION NUMBER(s): [id number] DATE: 09/2025 PROCEDURE: Right NEPHROSTOMY TUBE CHANGE HISTORY: NEPHROTUBE PLACEMENT DOCUMENTATION: Informed consent was obtained and a procedural time out was performed. SEDATION: Moderate sedation was utilized during the procedure. The patient received benzodiazepines and opioids, the dosing of which was documented in the patients permanent medical record. Pre-sedation history and evaluation revealed no contraindications to sedation. The patients level of consciousness and physiologic status was monitored continuously by the physician and nursing staff throughout the procedure. Total intra-service moderate sedation time was 30 minutes. FLUORO TIME: 0.3 minutes TECHNIQUE: The right nephrostomy tube and surrounding skin were prepped, draped, and anesthetized with 1% lidocaine. A principal quality engineer radiograph was obtained. The right nephrostomy tube was injected with dilute contrast and fluoroscopic images were obtained. The existing right nephrostomy nephrostomy tube was cut and removed over a wire. A new right nephrostomy 8.5 [place] APD was then placed under fluoroscopy. The tube was injected with contrast and a spot radiograph obtained. The tube was then sutured in place and reconnected to gravity drainage. Sterile dressings were applied. FINDINGS: The existing nephrostomy tube was in good position and patent. The new tube was positioned in the renal pelvis. IMPRESSION: 1. SUCCESSFUL right NEPHROSTOMY TUBE EXCHANGE. ATED BY: DESTIN FLORES MD DICTATED DATE/TIME: 10/12/25 1414 Condition at Discharge: Undetermined Final Diagnosis/Problems List Nephrolithiasis Acute Obstructive uropathy Acute complicated UTI Small renal cyst S/P right side nephrostomy tube placement Acute Pyelonephritis llicit drug use, Nicotine use disorder Discharge Disposition: AMA Discharge Statement: "Patient was advised to return to the ER or call 911 if any headaches, dizziness, shortness of breath, chest pain, abdominal pain, bleeding, fevers, or worsening of medical condition. Patient was counseled about treatment plan, medications, possible side effects, patientverbalized understanding. All questions were answered to the best of my ability. This discharge took greater then 30 minutes in planning, reviewing documentation, counseling the patient, and discussing with other team members." ASSESSMENT ASSESSMENT Assessment Date of Service: Oct 13, 2025 Billing Provider: DEANGELO JIMÉNEZ MD Common Visit Codes: 37181-PSJ/OBS DISCH DAY >30min IRIS RIVERA RESIDENT Oct 13, 2025 13:40 DEANGELO JIMÉNEZ MD Oct 14, 2025 13:25
== END 2025-10-12 19:50 | disposition left against medical advice (07) | DRG 465 ==
LOC: ER 21:54 → OVERFLOW 10-10 04:30 → EAST 10-10 23:08
PROVIDERS: ADMIT Internal Medicine
PROC: 0T25X0Z Change Drainage Device in Kidney, External Approach (ICD-10-PCS; principal; 2025-10-12)
DX: N20.2 Calculus of kidney with calculus of ureter (principal); F17.210 Nicotine dependence, cigarettes, uncomplicated; N10 Acute pyelonephritis; N13.9 Obstructive and reflux uropathy, unspecified; G47.00 Insomnia, unspecified; N28.1 Cyst of kidney, acquired; Z53.29 Procedure and treatment not carried out because of patient's decision for other reasons; Z88.8 Allergy status to other drugs, medicaments and biological substances; Z87.442 Personal history of urinary calculi; Z82.49 Family history of ischemic heart disease and other diseases of the circulatory system; Z80.9 Family history of malignant neoplasm, unspecified
CPT/HCPCS: 36415; 50435; 74176; 74425; 76775; 80048; 80076; 80307; 81001; 85025; 85610; 85730; 87086; 99152; G0378; J2250